=== PATIENT | female | born 1990 | race Caucasian/White ===

== ENCOUNTER 2016-12-09 20:16 | Emergency (ER) | payer OTHER ==
[2016-12-09] MEDS ORDERED: DUONEB 0.5-3 MG/3 ml Neb IH ONE ×2 (20:25→20:26)
[2016-12-09] MEDS ORDERED: Sodium Chloride 0.9% 1000 ML 1,000 ML IV STA (20:27)
[2016-12-09] MEDS ORDERED: Sodium Chloride 0.9% 1000 ML 1,000 ML ONE (20:32)
[2016-12-09] MEDS ORDERED: solu-MEDROL 125 MG IV ONE (20:39)
[2016-12-09] MEDS ORDERED: solu-MEDROL 125 MG ONE (20:42)
--- NOTE | 2016-12-09 20:44 | ERPHSYRPT ---
- History of Present Illness Time Seen by Provider: 12/09/16 20:40 Source: patient Exam Limitations: no limitations Patient Subjective Stated Complaint: states she has very bad asthma and it has been acting up for 1 week Triage Nursing Assessment: bilateral wheezes and pt coughing frequently non productive cough. pt sob at rest Physician History: This is a 26-year-old white female with history of asthma she arrives with complaint of shortness of breath wheezing symptoms for a week she states for the past couple days that she has been waking up and using an inhaler every hour. She has no fevers no vomiting. Past medical history includes migraines, asthma, bronchitis, pneumonia, multiple fractures, anxiety, depression, paranoia. 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 Social history positive for tobacco use. Past surgical history includes left elbow surgery right knee surgery, appendectomy, Timing/Duration: today Activities at Onset: none Severity of Dyspnea-Max: moderate Severity of Dyspnea-Current: moderate Possible Cause: occasional episodes Modifying Factors: Improves With: nothing, albuterol inhaler (atient using albuterol inhaler). Worsens With: albuterol nebulizer, coughing, deep breath, exertion, lying down, oxygen, rest Associated Symptoms: cough, wheezing, No anxiety, No chest pain/discomfort, No edema, No fever, No insomnia, No loss of appetite, No lightheadedness, No weakness, No ankle swelling, No chills, No hemoptysis, No calf pain, No dizziness, No heaviness, No heart racing, No lightheadedness, No leg swelling, No muscle spasms feet, No muscle spasms hands, No painful breathing, No productive cough, No sweating, No tightness, No tingling face, No tingling hands International travel in last 2 weeks: No Allergies/Adverse Reactions: povidone-iodine [From Betadine] Allergy (Mild, Verified 11/03/16 16:27) Blisters soap [From Betadine] Allergy (Mild, Verified 11/03/16 16:27) Blisters sulfamethoxazole [From Bactrim] Allergy (Mild, Verified 11/03/16 16:27) "weird hives" trimethoprim [From Bactrim] Allergy (Mild, Verified 11/03/16 16:27) "weird hives" Home Medications: Albuterol Sulfate [Proair Hfa] 8.5 gm IH QID PRN 03/30/16 [History] Albuterol/Ipratropium 3ml Neb* [DUONEB 0.5-3 MG/3 ml Neb] 3 ml NEB QID [History] Hx Tetanus, Diphtheria Vaccination/Date Given: Yes Hx Influenza Vaccination/Date Given: No Hx Pneumococcal Vaccination/Date Given: No Immunizations Up to Date: Yes - Review of Systems Constitutional: No Fever, No Chills Eyes: No Symptoms Ears, Nose, & Throat: No Symptoms Respiratory: Cough, Dyspnea, Wheezing, No Cyanosis, No Dyspnea on Exertion (DUBON) , No Stridor Cardiac: No Chest Pain, No Edema, No Syncope Abdominal/Gastrointestinal: No Abdominal Pain, No Nausea, No Vomiting, No Diarrhea Genitourinary Symptoms: No Dysuria Musculoskeletal: No Back Pain, No Neck Pain Skin: No Rash Neurological: No Dizziness, No Focal Weakness, No Sensory Changes Psychological: No Symptoms Endocrine: No Symptoms All Other Systems: Reviewed and Negative - Past Medical History Pertinent Past Medical History: Yes Neurological History: Migraines ENT History: No Pertinent History Cardiac History: Other Respiratory History: Asthma, Bronchitis, Pneumonia Endocrine Medical History: No Pertinent History Musculoskeletal History: Fractures, Other GI Medical History: No Pertinent History History: No Pertinent History Psycho-Social History: Anxiety, Depression Female Reproductive Disorders: No Pertinent History Other Medical History: PARANOIA, 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 Unable to name the condition. - Past Surgical History Past Surgical History: Yes Neuro Surgical History: No Pertinent History Cardiac: No Pertinent History Respiratory: No Pertinent History Gastrointestinal: Appendectomy Genitourinary: No Pertinent History Musculoskeletal: Other Female Surgical History: Section Other Surgical History: Left elbow repair, right knee repair - Social History Smoking Status: Former smoker How long have you smoked: 15 Exposure to second hand smoke: Yes Drug Use: none Patient Lives Alone: No Significant Family History: no pertinent family hx - Female History Hx Last Menstrual Period: now Hx Now: No - Nursing Vital Signs Nursing Vital Signs: Initial Vital Signs Temperature 96.7 F Temperature Source Oral Pulse Rate 89 Respiratory Rate 18 Blood Pressure 116/71 Pain Intensity 0 - Physical Exam General Appearance: mild distress Eye Exam: PERRL/EOMI Neck Exam: normal inspection, supple Respiratory Exam: respiratory distress (mild respiratory distress), airway intact, diminished breath sounds, wheezing, No chest tenderness, No lungs clear , No accessory muscle use, No prolonged expirations, No crackles/rales, No rhonchi, No stridor, No pleural rub Cardiovascular/Chest Exam: normal heart sounds, regular rate/rhythm Abdominal/Gastrointestinal Exam: soft, No tenderness, No distention, No mass Extremity Exam: non-tender, normal range of motion, normal inspection, no calf tenderness, no pedal edema Peripheral Pulses Exam: dorsalis-pedis (R): 2+, dorsalis-pedis (L): 2+ (I don't think she broke her nose nothis) Neurologic Exam: alert, oriented x 3, cooperative, clinical care leader II-XII nml as tested, sensation nml, No motor deficits Skin Exam: normal color, warm, No dry SpO2 Interpretation: normal SpO2: 96 Oxygen Delivery: Room Air - Radiology Exams Chest X-ray Interpretation: Interpreted by me, Negative, No Pneumonia, No Pneumothorax Ordered Tests: Active Orders 24 hr Category Date Time Status CHEST 1 VIEW (PORTABLE) Stat Exams 12/09/16 20:39 Taken HCG QUALITATIVE,SERUM Stat Lab 12/09/16 20:40 Completed Respiratory Nebulizer STAT RT 12/09/16 20:26 Completed Medication Summary Generic Name Dose Route Start Last Admin Trade Name Freq PRN Reason Stop Dose Admin Sodium Chloride 1,000 mls @ 100 mls/hr 12/09/16 20:27 12/09/16 20:38 Sodium Chloride 0.9% 1000 Ml IV 12/10/16 06:26 100 mls/hr .Q10H STA Administration Discontinued Medications Generic Name Dose Route Start Last Admin Trade Name Freq PRN Reason Stop Dose Admin Albuterol/Ipratropium 3 ml 12/09/16 20:26 12/09/16 20:29 Duoneb 0.5-3 Mg/3 Ml Neb IH 12/09/16 20:27 3 ml STAT ONE Administration Albuterol/Ipratropium Confirm 12/09/16 20:25 Duoneb 0.5-3 Mg/3 Ml Neb Administered 12/09/16 20:26 Dose 3 ml IH .STK-MED ONE Sodium Chloride Confirm 12/09/16 20:32 Sodium Chloride 0.9% 1000 Ml Administered 12/09/16 20:33 Dose 1,000 mls @ ud .ROUTE .STK-MED ONE Methylprednisolone Sodium Succinate 125 mg 12/09/16 20:39 12/09/16 20:42 Solu-Medrol 125 Mg IV 12/09/16 20:40 125 mg STAT ONE Administration Methylprednisolone Sodium Succinate Confirm 12/09/16 20:42 Solu-Medrol 125 Mg Administered 12/09/16 20:43 Dose 125 mg .ROUTE .STK-MED ONE Lab/Rad Data: Laboratory Results 12/09/16 Range/Units 20:40 Serum , Qual NEGATIVE (Negative) - Progress Progress: improved Air Movement: fair Progress Note: 12/09/16 22:08 Patient markedly improved after IV Solu-Medrol and DuoNeb treatment. Will plan to send patient home with Zithromax, tapering dose of prednisone. Patient has albuterol at home. Patient advised to continue to not to smoke. - Departure Time of Disposition: 22:08 Departure Disposition: Home Clinical Impression: Asthma with acute exacerbation in adult Condition: Fair Critical Care Time: No Additional Instructions: Return home. Plenty of fluids. Zithromax Z-MIRIAM as directed. Tapering dose of prednisone as directed. Continue your albuterol inhaler 2 puffs every 4 hours as needed. Continue not to smoke. Follow-up with your family doctor if symptoms worse no better in 48 hours or persist longer than one week. Return for acute distress or for severe symptoms. Prescriptions: Azithromycin 250 mg [Zithromax 250 MG TABLET] 0 mg PO ZPACK #6 tablet
[2016-12-09] MEDS ORDERED: Zithromax 250 MG TABLET PO ONE (22:10)
[2016-12-09] MEDS ORDERED: Zithromax 250 MG TABLET ONE (22:13)
[2016-12-09 22:28] VITALS: BP 106/67; PULSE 100; O2SAT 97
--- NOTE | 2016-12-10 08:47 | XRAY ---
Indication: Cough and short of breath. Comparison: November 03, 2016 Portable chest again demonstrates normal heart, lungs, and bony thorax.
== END 2016-12-09 22:28 | disposition home or self-care (01) ==
LOC: ED 20:16
DX: J45.901 Unspecified asthma with (acute) exacerbation (principal); Z79.899 Other long term (current) drug therapy; R06.02 Shortness of breath; R06.2 Wheezing; Z87.01 Personal history of pneumonia (recurrent)
CPT/HCPCS: 36000; 36415; 71010; 84703; 94640; 96360; 96374; 99283; J2930

== ENCOUNTER 2016-12-24 18:12 | Emergency (ER) | payer OTHER ==
[2016-12-24] MEDS ORDERED: PROVENTIL 2.5 MG/3 ML NEB IH ONE ×2 (18:15→18:16)
--- NOTE | 2016-12-24 18:26 | ERPHSYRPT ---
- History of Present Illness Time Seen by Provider: 12/24/16 18:19 Source: patient Exam Limitations: no limitations Physician History: This is a 26-year-old white female with history of migraines, asthma, bronchitis , pneumonia, anxiety, depression, paranoia who apparently has some type of heart valve problem. She is brought by medics intubated. Patient apparently was noted to have severe respiratory distress followed by respiratory arrest and cardiac arrest. Patient was given a proximally 5-10 minutes of CPR with return to the respirations and pulse. Patient was noted however to have agonal respirations therefore she was intubated by the medics she was given succinylcholine 50 mg Versed 5 mg and vecuronium 10 mg. She arrives intubated she has bilateral breath sounds with bag ventilation heart is tachycardic. She is unresponsive secondary to pharmacy however medics reported that she other than biting at the tube did not exhibit purposeful movements. Past medical history includes migraines, asthma, bronchitis, pneumonia, fractures, anxiety, depression, paranoia, heart valve problems Past surgical history includes appendectomy, , left elbow surgery right injury. Timing/Duration: today Severity: severe Modifying Factors: Improves With: other (patient in severe respiratory distress prior to cardiac and respiratory arrest) Allergies/Adverse Reactions: povidone-iodine [From Betadine] Allergy (Mild, Verified 12/24/16 18:23) Blisters soap [From Betadine] Allergy (Mild, Verified 12/24/16 18:23) Blisters sulfamethoxazole [From Bactrim] Allergy (Mild, Verified 12/24/16 18:23) "weird hives" trimethoprim [From Bactrim] Allergy (Mild, Verified 12/24/16 18:23) "weird hives" divalproex sodium [From Depakote] Allergy (Verified 12/24/16 18:23) according to family Home Medications: Albuterol Sulfate [Proair Hfa] 8.5 gm IH QID PRN 03/30/16 [History] Albuterol/Ipratropium 3ml Neb* [DUONEB 0.5-3 MG/3 ml Neb] 3 ml NEB QID [History] Azithromycin 250 mg [Zithromax 250 MG TABLET] 1 mg PO ZPACK 12/12/16 [ History] Hx Tetanus, Diphtheria Vaccination/Date Given: Yes Hx Influenza Vaccination/Date Given: No Hx Pneumococcal Vaccination/Date Given: No - Review of Systems Constitutional: No Fever, No Chills Respiratory: Other (Severe respiratory distress progressing to respiratory and cardiac arrest) All Other Systems: Unable due to condition (Patient unresponsive and intubated) - Past Medical History Pertinent Past Medical History: Yes Neurological History: Migraines ENT History: No Pertinent History Cardiac History: Other Respiratory History: Asthma, Bronchitis, Pneumonia Endocrine Medical History: No Pertinent History Musculoskeletal History: Fractures, Other GI Medical History: No Pertinent History History: No Pertinent History Psycho-Social History: Anxiety, Depression Female Reproductive Disorders: No Pertinent History Other Medical History: PARANOIA, 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 Unable to name the condition. - Past Surgical History Past Surgical History: Yes Neuro Surgical History: No Pertinent History Cardiac: No Pertinent History Respiratory: No Pertinent History Gastrointestinal: Appendectomy Genitourinary: No Pertinent History Musculoskeletal: Other Female Surgical History: Section Other Surgical History: Left elbow repair, right knee repair - Social History Smoking Status: Current some day smoker How long have you smoked: 15 years Exposure to second hand smoke: Yes Drug Use: none Patient Lives Alone: No Significant Family History: no pertinent family hx - Female History Hx Now: No - Nursing Vital Signs Nursing Vital Signs: Initial Vital Signs Temperature 95.4 F Temperature Source Core Pulse Rate 110 Respiratory Rate 14 Blood Pressure [Left Arm] 139/89 Pain Intensity 0 - Physical Exam General Appearance: other (well-developed well-nourished white female, intubated good breath sounds with bag ventillation) Eye Exam: other (pupils nonreactive) Ears, Nose, Throat Exam: other (endotracheal tube in place) Neck Exam: normal inspection, non-tender, supple, full range of motion Respiratory Exam: other (bilateral rhonchi and wheezes with bag ventilation) Cardiovascular Exam: tachycardia, other (Tachycardic without murmur) Gastrointestinal/Abdomen Exam: soft, normal bowel sounds, No tenderness, No mass Back Exam: normal inspection, normal range of motion, No CVA tenderness, No vertebral tenderness Extremity Exam: normal inspection, normal range of motion, pelvis stable Neurologic Exam: alert, oriented x 3, cooperative, normal mood/affect, nml cerebellar function, nml station & gait, sensation nml, No motor deficits Skin Exam: normal color, warm, dry, No rash Lymphatic Exam: No adenopathy SpO2 Interpretation: borderline oxygenation (96% on 100% o2) Ordered Tests: Active Orders 24 hr Category Date Time Status Accucheck STAT Care 12/24/16 18:18 Active Cath [Catheter-[place] [facility]] STAT Care 12/24/16 18:43 Active EKG-ER Only STAT Care 12/24/16 18:15 Active CHEST 1 VIEW (PORTABLE) Stat Exams 12/24/16 18:15 Taken ARTERIAL BLOOD GASES Urgent Lab 12/24/16 18:15 Completed CBC W DIFF Stat Lab 12/24/16 18:28 Completed CMP Stat Lab 12/24/16 18:28 Completed D-DIMER QUANTITATION Stat Lab 12/24/16 18:28 Completed HCG QUALITATIVE,SERUM Stat Lab 12/24/16 18:28 Completed Lactic Acid Urgent Lab 12/24/16 18:15 Completed TROPONIN Stat Lab 12/24/16 18:28 Completed Respiratory Nebulizer STAT RT 12/24/16 18:17 Completed Medication Summary Discontinued Medications Generic Name Dose Route Start Last Admin Trade Name Freq PRN Reason Stop Dose Admin Albuterol Sulfate 2.5 mg 12/24/16 18:15 12/24/16 18:21 Proventil 2.5 Mg/3 Ml Neb IH 12/24/16 18:16 2.5 mg STAT ONE Administration Albuterol Sulfate Confirm 12/24/16 18:16 Proventil 2.5 Mg/3 Ml Neb Administered 12/24/16 18:17 Dose 2.5 mg IH .STK-MED ONE Fentanyl Citrate Confirm 12/24/16 19:39 Sublimaze 100 Mcg/2 Ml Administered 12/24/16 19:40 Dose 100 mcg .ROUTE .STK-MED ONE Sodium Chloride Confirm 12/24/16 19:43 Sodium Chloride 0.9% 1000 Ml Administered 12/24/16 19:44 Dose 1,000 mls @ ud .ROUTE .STK-MED ONE Methylprednisolone Sodium Succinate 125 mg 12/24/16 18:32 12/24/16 18:35 Solu-Medrol 125 Mg IV 12/24/16 18:33 125 mg STAT ONE Administration Methylprednisolone Sodium Succinate Confirm 12/24/16 18:32 Solu-Medrol 125 Mg Administered 12/24/16 18:33 Dose 125 mg .ROUTE .STK-MED ONE Lab/Rad Data: Laboratory Result Diagrams 12/24/16 18:28 12/24/16 18:28 Laboratory Results 12/24/16 12/24/16 12/24/16 Range/Units 18:28 18:28 18:28 WBC (4.0-10.5) K/mm3 RBC (4.1-5.4) M/mm3 Hgb (12.0-16.0) gm/dl Hct (35-47) % MCV (78-100) fl MCH (26-32) pg MCHC (32-36) g/dl RDW (11.5-14.0) % Plt Count (150-450) K/mm3 MPV (6-9.5) fl Gran % (36.0-66.0) % Lymphocytes % (24.0-44.0) % Monocytes % (0.0-12.0) % Eosinophils % (0.00-5.0) % Basophils % (0.0-0.4) % Basophils # (0-0.4) D-Dimer 0.665 H* (0.00-0.49) mg/L Puncture Site pCO2 (35-45) mmHg pO2 (75-100) mmHg Base Excess (-2.0-2.0) O2 Saturation (94-100) g/dF ABG pH (7.35-7.45) ABG HCO3 (22-28) ABG O2 Sat (Measured) (95-100) % Seb Test A-a Gradient a/A Ratio Hemoglobin Carboxyhemoglobin (0.0-6.9) % THgb Methemoglobin (1.4-1.5) % Potassium 4.1 (3.5-5.1) Temperature C POC O2 Flow Rate % Vent Mode Vent Rate /MIN Tidal Volume cc PEEP cmH2O Sodium 140 (136-145) mEq/L Chloride 106 (98-107) mEq/L Carbon Dioxide 19.7 L (21-32) mEq/L Anion Gap 18.8 H (5-15) MEQ/L BUN 15 (9-20) mg/dL Creatinine 0.87 (0.55-1.30) mg/dl Estimated GFR > 60 ML/MIN Glucose 202 H (70-110) MG/DL Lactic Acid (0.4-2.0) Calcium 8.4 L (8.5-10.1) mg/dL Total Bilirubin 0.3 (0.2-1.0) mg/dL AST 47 H (15-37) U/L ALT 55 (12-78) U/L Alkaline Phosphatase 81 (46-116) U/L Troponin I < 0.017 (0.000-0.056) ng/ml Serum Total Protein 7.5 (6.4-8.2) gm/dL Albumin 4.0 (3.4-5.0) g/dL Serum , Qual NEGATIVE (Negative) 12/24/16 12/24/16 Range/Units 18:28 18:15 WBC 12.5 H (4.0-10.5) K/mm3 RBC 4.79 (4.1-5.4) M/mm3 Hgb 14.7 (12.0-16.0) gm/dl Hct 43.7 (35-47) % MCV 91.2 (78-100) fl MCH 30.7 (26-32) pg MCHC 33.6 (32-36) g/dl RDW 13.8 (11.5-14.0) % Plt Count 359 (150-450) K/mm3 MPV 9.9 H (6-9.5) fl Gran % 58.8 (36.0-66.0) % Lymphocytes % 30.6 (24.0-44.0) % Monocytes % 6.1 (0.0-12.0) % Eosinophils % 4.2 (0.00-5.0) % Basophils % 0.3 (0.0-0.4) % Basophils # 0.04 (0-0.4) D-Dimer (0.00-0.49) mg/L Puncture Site RIGHT BRACHIAL pCO2 53 H (35-45) mmHg pO2 77 (75-100) mmHg Base Excess -8.4 L (-2.0-2.0) O2 Saturation 91.4 L (94-100) g/dF ABG pH 7.19 L* (7.35-7.45) ABG HCO3 20.2 L (22-28) ABG O2 Sat (Measured) 95.0 (95-100) % Seb Test NOT APPLICABLE A-a Gradient 570 a/A Ratio 0.12 Hemoglobin 14.7 Carboxyhemoglobin 2.8 (0.0-6.9) % THgb Methemoglobin 1.0 L (1.4-1.5) % Potassium 3.8 (3.5-5.1) Temperature 37.0 C POC O2 Flow Rate 100 % Vent Mode A/C Vent Rate 14 /MIN Tidal Volume 550 cc PEEP 5 cmH2O Sodium (136-145) mEq/L Chloride (98-107) mEq/L Carbon Dioxide (21-32) mEq/L Anion Gap (5-15) MEQ/L BUN (9-20) mg/dL Creatinine (0.55-1.30) mg/dl Estimated GFR ML/MIN Glucose (70-110) MG/DL Lactic Acid 1.8 (0.4-2.0) Calcium (8.5-10.1) mg/dL Total Bilirubin (0.2-1.0) mg/dL AST (15-37) U/L ALT (12-78) U/L Alkaline Phosphatase (46-116) U/L Troponin I (0.000-0.056) ng/ml Serum Total Protein (6.4-8.2) gm/dL Albumin (3.4-5.0) g/dL Serum , Qual (Negative) - Progress Progress: improved Progress Note: 12/0312/24/16 20:08 patient was given 2 L normal saline, Solu-Medrol 125 IV she was given fentanyl 50 g IV 2. Patient's labs were stable. Case was discussed with Dr. Quinones. . Patient was given albuterol treatment and continued on ventilatorpatient had a decreased temperature of 93 on arrival because of patient's decreased level of consciousness after cardiac arrest, her temperature was not aggressivelly restored to normal level, Dr. Quinones accepted the patient for transfer to [facility] - Departure Time of Disposition: 20:10 Departure Disposition: Transfer ([facility] Dr Quinones) Clinical Impression: Cardiac arrest, Respiratory arrest, Asthma exacerbation Condition: Fair Critical Care Time: Yes Critical Care Time(excluding separately billable procedures): 75-104 minutes
[2016-12-24 18:28] LABS: A-aADO2 570; ARTERIAL BLD GAS TIDAL VOLUME 550 cc; ARTERIAL BLOOD GAS BASE EXCESS -8.4 (-2.0-2.0); ARTERIAL BLOOD GAS FIO2 100 %; ARTERIAL BLOOD GAS PO2 77 mmHg (75-100); Lactic Acid 1.8 (0.4-2.0)
[2016-12-24 18:29] LABS: ARTERIAL BLOOD GAS pH 7.19 (7.35-7.45)
[2016-12-24] MEDS ORDERED: solu-MEDROL 125 MG ONE (18:32)
[2016-12-24] MEDS ORDERED: solu-MEDROL 125 MG IV ONE (18:32)
[2016-12-24 18:35] LABS: BASOPHIL % 0.3 % (0.0-0.4); Eosinophil % 4.2 % (0.00-5.0); Granulocytes % 58.8 % (36.0-66.0); Lymphocytes % 30.6 % (24.0-44.0); Mean Cell Volume 91.2 fl (78-100); Mean Corpuscular Hemoglobin 30.7 pg (26-32); Mean Platelet Volume 9.9 fl (6-9.5); Monocytes % 6.1 % (0.0-12.0); Platelet Count 359 K/mm3 (150-450); Red Blood Count 4.79 M/mm3 (4.1-5.4); Red Cell Distribution Width 13.8 % (11.5-14.0); White Blood Count 12.5 K/mm3 (4.0-10.5)
[2016-12-24 18:58] LABS: ALKALINE PHOSPHATASE 81 U/L (46-116); ANION GAP 18.8 MEQ/L (5-15); BILIRUBIN,TOTAL 0.3 mg/dL (0.2-1.0); BLOOD UREA NITROGEN 15 mg/dL (9-20); CHLORIDE 106 mEq/L (98-107); Carbon Dioxide 19.7 mEq/L (21-32); Glucose 202 MG/DL (70-110); Potassium 4.1 mEq/L (3.5-5.1); SGOT/AST 47 U/L (15-37); SGPT/ALT 55 U/L (12-78); SODIUM 140 mEq/L (136-145); Total Protein 7.5 gm/dL (6.4-8.2)
[2016-12-24 19:00] LABS: TROPONIN < 0.017 ng/ml (0.000-0.056)
[2016-12-24] MEDS ORDERED: SUBLIMAZE 100 MCG/2 ML ONE ×2 (19:39→20:27)
[2016-12-24] MEDS ORDERED: Sodium Chloride 0.9% 1000 ML 1,000 ML ONE (19:43)
[2016-12-24 20:03] VITALS: BP 139/89; PULSE 110; O2SAT 100
[2016-12-24] MEDS ORDERED: VERSED 5 MG/5 ML ONE (20:12)
[2016-12-24] MEDS ORDERED: Versed 50 MG/ 10 Ml MDV ONE (20:15)
[2016-12-24] MEDS ORDERED: Sodium Chloride 0.9% 250 ML 250 ML IV ONE (20:15)
--- NOTE | 2016-12-25 08:41 | XRAY ---
Indication: Asthma and cardiac arrest. Comparison: December 09, 2016 Portable chest demonstrates intubation with endotracheal tube tip 4 cm above the rm. Remaining heart, lungs, and bony thorax normal.
== END 2016-12-24 21:01 | disposition short-term general hospital (02) ==
LOC: ED 18:12
DX: I46.9 Cardiac arrest, cause unspecified (principal); R09.2 Respiratory arrest; J45.901 Unspecified asthma with (acute) exacerbation
CPT/HCPCS: 36000; 36415; 36600; 51702; 71010; 80053; 82375; 82803; 82962; 83605; 84484; 84703; 85025; 85379; 93005; 93041; 94002; 94640; 94770; 94799; 96360; 96361; 96365; 96374; 99285; 99291; 99292; J2250; J2930; J3010

== ENCOUNTER 2017-02-13 18:01 | Emergency (ER) | payer OTHER ==
[2017-02-13] MEDS ORDERED: Eye-Stream Solution OP ONE (19:54)
[2017-02-13] MEDS ORDERED: Erythromycin 3.5 GM OPHTH. OP ONE (19:54)
[2017-02-13] MEDS ORDERED: TETRACAINE 0.5% STERI-UNIT SOL OP STA (19:54)
[2017-02-13] MEDS ORDERED: Fluor-I-Strip/Ful-Flo OP ONE ×2 (19:54→20:01)
[2017-02-13] MEDS ORDERED: Rocephin 1000 MG INJ IM ONE (19:55)
[2017-02-13] MEDS ORDERED: XYLOCAINE 1% HCL 20 ML MDV ONE (20:01)
[2017-02-13] MEDS ORDERED: Rocephin 1000 MG INJ ONE (20:01)
[2017-02-13] MEDS ORDERED: Erythromycin 1 GM ONE (20:01)
[2017-02-13] MEDS ORDERED: TETRACAINE 0.5% STERI-UNIT SOL OP ONE (20:01)
[2017-02-13] MEDS ORDERED: Eye-Stream Solution ONE (20:01)
--- NOTE | 2017-02-13 20:03 | ERPHSYRPT ---
- History of Present Illness Time Seen by Provider: 02/13/17 19:40 Source: patient Exam Limitations: no limitations Patient Subjective Stated Complaint: rt eye pain Triage Nursing Assessment: rt eye questionable foreign body. states swelling and redness is worse. rt eye noted swelling. yellow drainage noted. no other injuries. draiange noted at present Physician History: THREE DAYS AGO PT HAD A FOREIGN BODY SENSATION IN THE RIGHT EYE POSSIBLY FROM SAWDUST. THE FOLLOWING DAY THE RIGHT EYELIDS BECAME RED AND SWOLLEN. PT ALSO HAS YELLOW DISCHARGE FROM THE RIGHT EYE. PT DENIES FEVER, COUGH, VOMITING; ADMITS TO SLIGHT BLURRY VISION IN THE RIGHT EYE. Allergies/Adverse Reactions: povidone-iodine [From Betadine] Allergy (Mild, Verified 02/13/17 18:29) Blisters soap [From Betadine] Allergy (Mild, Verified 02/13/17 18:29) Blisters sulfamethoxazole [From Bactrim] Allergy (Mild, Verified 02/13/17 18:29) "weird hives" trimethoprim [From Bactrim] Allergy (Mild, Verified 02/13/17 18:29) "weird hives" divalproex sodium [From Depakote] Allergy (Verified 02/13/17 18:29) according to family Home Medications: Albuterol Sulfate [Proair Hfa] 8.5 gm IH QID PRN 03/30/16 [History] Albuterol/Ipratropium 3ml Neb* [DUONEB 0.5-3 MG/3 ml Neb] 3 ml NEB QID [History] Hx Tetanus, Diphtheria Vaccination/Date Given: Yes Hx Influenza Vaccination/Date Given: No Hx Pneumococcal Vaccination/Date Given: No Immunizations Up to Date: Yes - Review of Systems Constitutional: No Fever Eyes: Discharge, Eye Redness, Vision Changes (SLIGHT BLURRY VISION IN THE RIGHT EYE), Foreign Body Sensation Respiratory: No Cough Abdominal/Gastrointestinal: No Vomiting All Other Systems: Reviewed and Negative - Past Medical History Pertinent Past Medical History: Yes Neurological History: Migraines ENT History: No Pertinent History Cardiac History: Other Respiratory History: Asthma, Bronchitis, Pneumonia Endocrine Medical History: No Pertinent History Musculoskeletal History: Fractures, Other GI Medical History: No Pertinent History History: No Pertinent History Psycho-Social History: Anxiety, Depression Female Reproductive Disorders: No Pertinent History Other Medical History: PARANOIA, undiagnosed heart valve issue. using wheelchair due to unable to use legs - Past Surgical History Past Surgical History: Yes Neuro Surgical History: No Pertinent History Cardiac: No Pertinent History Respiratory: No Pertinent History Gastrointestinal: Appendectomy Genitourinary: No Pertinent History Musculoskeletal: Other Female Surgical History: Section Other Surgical History: Left elbow repair, right knee repair - Social History Smoking Status: Current every day smoker How long have you smoked: 15 years Exposure to second hand smoke: Yes Drug Use: none Patient Lives Alone: No Significant Family History: no pertinent family hx - Female History Hx Last Menstrual Period: 3 weeks Hx Now: No - Nursing Vital Signs Nursing Vital Signs: Initial Vital Signs Temperature 98.1 F Temperature Source Oral Pulse Rate 107 Respiratory Rate 18 Blood Pressure [Right Arm] 108/62 Pain Intensity 6 - Physical Exam General Appearance: alert Eye Exam: right eye: conjunctival inflammation, corneal abrasion (NO CORNEAL ABRASION SEEN IN RIGHT EYE UPON FLUORESCEIN STAINING; NO F.B. SEEN IN RIGHT EYE. ), other (RIGHT EYELIDS MILDLY ERYTHEMATOUS AND EDEMATOUS.), bilateral eye: PERRL, EOMI Ears, Nose, Throat Exam: TMs normal, pharynx normal, moist mucous membranes Neck Exam: normal inspection Respiratory Exam: wheezing (MINIMAL EXPIRATORY WHEEZING OVER THE RIGHT POSTERIOR BASE.) Cardiovascular Exam: normal heart sounds Gastrointestinal Exam: soft, normal bowel sounds Extremity Exam: other (WEAKNESS OF THE LOWER EXTREMITIES(ONGOING FOR TWO MONTHS PER PT).) Neurologic: alert, cooperative - Course Nursing assessment & vital signs reviewed: Yes Ordered Tests: Active Orders 24 hr Category Date Time Status Visual Acuity STAT Care 02/13/17 19:54 Active Medication Summary Discontinued Medications Generic Name Dose Route Start Last Admin Trade Name Baq PRN Reason Stop Dose Admin Ceftriaxone Sodium 1,000 mg 02/13/17 19:55 02/13/17 20:03 Rocephin 1000 Mg Inj IM 02/13/17 19:56 1,000 mg STAT ONE Administration Ceftriaxone Sodium Confirm 02/13/17 20:01 Rocephin 1000 Mg Inj Administered 02/13/17 20:02 Dose 1,000 mg .ROUTE .STK-MED ONE Erythromycin 3.5 gm 02/13/17 19:54 02/13/17 20:03 Erythromycin 3.5 Gm Ophth. OP 02/13/17 19:55 3.5 gm STAT ONE Administration Erythromycin Confirm 02/13/17 20:01 Erythromycin 1 Gm Administered 02/13/17 20:02 Dose 1 gm .ROUTE .STK-MED ONE Eye Irrigation Solution 15 ml 02/13/17 19:54 02/13/17 20:03 Eye-Stream Solution OP 02/13/17 19:55 30 ml STAT ONE Administration Eye Irrigation Solution Confirm 02/13/17 20:01 Eye-Stream Solution Administered 02/13/17 20:02 Dose 30 ml .ROUTE .STK-MED ONE Fluorescein Sodium 1 mg 02/13/17 19:54 02/13/17 20:03 Gjvfb-U-Gxdof/Ful-Rolf OP 02/13/17 19:55 1 mg STAT ONE Administration Fluorescein Sodium Confirm 02/13/17 20:01 Dewzs-H-Qxuwd/Ful-Rolf Administered 02/13/17 20:02 Dose 1 mg OP .STK-MED ONE Lidocaine HCl Confirm 02/13/17 20:01 Xylocaine 1% Hcl 20 Ml Mdv Administered 02/13/17 20:02 Dose 1 ml .ROUTE .STK-MED ONE Tetracaine HCl 4 ml 02/13/17 19:54 02/13/17 20:03 Tetracaine 0.5% Steri-Unit Letty OP 02/13/17 19:55 4 ml STAT STA Administration Tetracaine HCl Confirm 02/13/17 20:01 Tetracaine 0.5% Steri-Unit Letty Administered 02/13/17 20:02 Dose 4 ml OP .STK-MED ONE - Departure Time of Disposition: 20:58 Departure Disposition: Home Clinical Impression: PERIORBITAL CELLULITIS OF THE RIGHT EYE, CONJUNCTIVITIS OF THE RIGHT EYE Condition: Fair Critical Care Time: No Referrals: CARLENE MENA MD [Primary Care Provider] - Prescriptions: Cefdinir [Omnicef 300 mg] 300 mg PO BID #20 capsule Neomy Sulf/Bacitra/Polymyxin * [Neosporin Opth Oint 3.5 GM] 1 cm OP BID #1 tube
[2017-02-13 21:05] VITALS: BP 124/70; PULSE 76; O2SAT 100
== END 2017-02-13 21:13 | disposition home or self-care (01) ==
LOC: ED 18:01
DX: L03.213 Periorbital cellulitis (principal); H53.8 Other visual disturbances; H57.8 Other specified disorders of eye and adnexa
CPT/HCPCS: 96372; 99284; J0696

== ENCOUNTER 2017-02-17 05:33 | Observation (INO) | payer OTHER ==
[2017-02-17] MEDS ORDERED: DUONEB 0.5-3 MG/3 ml Neb IH ONE ×2 (05:40→05:42)
[2017-02-17] MEDS ORDERED: solu-MEDROL 125 MG IV ONE (05:42)
--- NOTE | 2017-02-17 05:50 | ERPHSYRPT ---
- History of Present Illness Time Seen by Provider: 02/17/17 05:40 Source: patient, EMS Exam Limitations: no limitations Physician History: 26 year old female with asthma who required intubation for same just a few months ago; pt developed shortness of breath this am and called EMS when three breathing treatmetns did not resolve her symptoms;pt also has cellulitis right eye being treated with ab , but has not been taking so will give AB in ER Timing/Duration: today Activities at Onset: none Severity of Dyspnea-Max: severe Severity of Dyspnea-Current: moderate Possible Cause: frequent episodes Modifying Factors: Improves With: albuterol nebulizer, oxygen Associated Symptoms: cough, wheezing Allergies/Adverse Reactions: povidone-iodine [From Betadine] Allergy (Mild, Verified 02/17/17 05:40) Blisters soap [From Betadine] Allergy (Mild, Verified 02/17/17 05:40) Blisters sulfamethoxazole [From Bactrim] Allergy (Mild, Verified 02/17/17 05:40) "weird hives" trimethoprim [From Bactrim] Allergy (Mild, Verified 02/17/17 05:40) "weird hives" divalproex sodium [From Depakote] Allergy (Verified 02/17/17 05:40) according to family Home Medications: Albuterol Sulfate [Proair Hfa] 8.5 gm IH QID PRN 03/30/16 [History] Albuterol/Ipratropium 3ml Neb* [DUONEB 0.5-3 MG/3 ml Neb] 3 ml NEB QID [History] Hx Tetanus, Diphtheria Vaccination/Date Given: Yes Hx Influenza Vaccination/Date Given: No Hx Pneumococcal Vaccination/Date Given: No - Review of Systems Constitutional: No Fever, No Chills Eyes: No Symptoms Ears, Nose, & Throat: No Symptoms Respiratory: Cough, Dyspnea, Wheezing Cardiac: No Chest Pain, No Edema, No Syncope Abdominal/Gastrointestinal: No Abdominal Pain, No Nausea, No Vomiting, No Diarrhea Genitourinary Symptoms: No Dysuria Musculoskeletal: No Back Pain, No Neck Pain Skin: No Rash Neurological: No Dizziness, No Focal Weakness, No Sensory Changes Psychological: No Symptoms Endocrine: No Symptoms All Other Systems: Reviewed and Negative - Past Medical History Pertinent Past Medical History: Yes Neurological History: Migraines ENT History: No Pertinent History Cardiac History: Other Respiratory History: Asthma, Bronchitis, Pneumonia Endocrine Medical History: No Pertinent History Musculoskeletal History: Fractures, Other GI Medical History: No Pertinent History History: No Pertinent History Psycho-Social History: Anxiety, Depression Female Reproductive Disorders: No Pertinent History Other Medical History: PARANOIA, undiagnosed heart valve issue. using wheelchair due to unable to use legs - Past Surgical History Past Surgical History: Yes Neuro Surgical History: No Pertinent History Cardiac: No Pertinent History Respiratory: No Pertinent History Gastrointestinal: Appendectomy Genitourinary: No Pertinent History Musculoskeletal: Other Female Surgical History: Section Other Surgical History: Left elbow repair, right knee repair - Social History Smoking Status: Current every day smoker How long have you smoked: 15 years Exposure to second hand smoke: Yes Drug Use: none Patient Lives Alone: No Significant Family History: no pertinent family hx - Female History Hx Now: No - Nursing Vital Signs Nursing Vital Signs: Initial Vital Signs Temperature 97.8 F Temperature Source Oral Pulse Rate 116 Respiratory Rate 29 Blood Pressure [] 130/75 Pain Intensity 0 - Physical Exam General Appearance: moderate distress, alert Eye Exam: PERRL/EOMI Neck Exam: normal inspection, supple Respiratory Exam: accessory muscle use, wheezing Cardiovascular/Chest Exam: normal heart sounds, regular rate/rhythm Abdominal/Gastrointestinal Exam: soft, No tenderness, No distention, No mass Rectal Exam: deferred Extremity Exam: non-tender, normal range of motion, normal inspection, no calf tenderness, no pedal edema Peripheral Pulses Exam: carotid (R): 2+, carotid (L): 2+, femoral (R): 2+, femoral (L): 2+, dorsalis-pedis (R): 2+, dorsalis-pedis (L): 2+ Neurologic Exam: alert, oriented x 3, cooperative, landscape architect II-XII nml as tested, sensation nml, No motor deficits Skin Exam: normal color, warm, No dry SpO2 Interpretation: borderline oxygenation SpO2: 91 Oxygen Delivery: Room Air - Course Nursing assessment & vital signs reviewed: Yes EKG Interpreted by Me: Sinus Rhythm, NORMAL AXIS, NORMAL INTERVALS, Non- specific ST Changes - Radiology Exams Chest X-ray Interpretation: Reviewed by me, Infiltrates (bilateral small infiltrates) Ordered Tests: Active Orders 24 hr Category Date Time Status Technology And Engineering Teacher STAT Care 02/17/17 05:42 Active EKG-ER Only STAT Care 02/17/17 05:42 Active IV Insertion STAT Care 02/17/17 05:42 Active Oxygen-ED Only NASAL CANNULA 2 lpm Care 02/17/17 05:42 Active CHEST 2 VIEWS (PA AND LAT) Stat Exams 02/17/17 05:43 Ordered CBC W DIFF Stat Lab 02/17/17 05:54 Completed CMP Stat Lab 02/17/17 05:54 Completed CULTURE, THROAT Stat Lab 02/17/17 06:02 Received HCG QUALITATIVE,SERUM Stat Lab 02/17/17 05:54 Completed Lactic Acid Stat Lab 02/17/17 06:04 Completed MAGNESIUM Stat Lab 02/17/17 05:54 Completed STREP SCREEN-BETA A Stat Lab 02/17/17 06:02 Completed Peak Expiratory Flow Rate ONCE RT 02/17/17 05:42 Completed Respiratory Nebulizer STAT RT 02/17/17 05:45 Completed Medication Summary Generic Name Dose Route Start Last Admin Trade Name Freq PRN Reason Stop Dose Admin Magnesium Sulfate/Dextrose 100 mls @ 100 mls/hr 02/17/17 05:45 02/17/17 06:23 Magnesium 1 Gm / 100 Ml D5w IV 02/17/17 07:44 100 mls/hr Q1H HELDER Administration Sodium Chloride 1,000 mls @ 100 mls/hr 02/17/17 05:45 02/17/17 06:02 Sodium Chloride 0.9% 1000 Ml IV 03/19/17 05:44 100 mls/hr .Q10H HELDER Administration Discontinued Medications Generic Name Dose Route Start Last Admin Trade Name Freq PRN Reason Stop Dose Admin Albuterol/Ipratropium Confirm 02/17/17 05:40 Duoneb 0.5-3 Mg/3 Ml Neb Administered 02/17/17 05:41 Dose 3 ml IH .STK-MED ONE Albuterol/Ipratropium 3 ml 02/17/17 05:42 02/17/17 05:49 Duoneb 0.5-3 Mg/3 Ml Neb IH 02/17/17 05:43 3 ml STAT ONE Administration Erythromycin 3.5 gm 02/17/17 06:06 Erythromycin 3.5 Gm Ophth. OP 02/17/17 06:07 STAT ONE Magnesium Sulfate/Dextrose Confirm 02/17/17 05:51 Magnesium 1 Gm / 100 Ml D5w Administered 02/17/17 05:52 Dose 200 mls @ ud IV .STK-MED ONE Sodium Chloride Confirm 02/17/17 05:51 Sodium Chloride 0.9% 1000 Ml Administered 02/17/17 05:52 Dose 1,000 mls @ ud .ROUTE .STK-MED ONE Ceftriaxone Sodium/Dextrose 50 mls @ 100 mls/hr 02/17/17 06:03 Rocephin 1 Gm-D5w 50 Ml Bag IV 02/17/17 06:32 STAT ONE Methylprednisolone Sodium Succinate 125 mg 02/17/17 05:42 02/17/17 06:07 Solu-Medrol 125 Mg IV 02/17/17 05:43 125 mg STAT ONE Administration Methylprednisolone Sodium Succinate Confirm 02/17/17 05:51 Solu-Medrol 125 Mg Administered 02/17/17 05:52 Dose 125 mg .ROUTE .STK-MED ONE Lab/Rad Data: Laboratory Result Diagrams 02/17/17 05:54 02/17/17 05:54 Laboratory Results 02/17/17 02/17/17 02/17/17 Range/Units 06:04 06:02 05:54 WBC (4.0-10.5) K/mm3 RBC (4.1-5.4) M/mm3 Hgb (12.0-16.0) gm/dl Hct (35-47) % MCV (78-100) fl MCH (26-32) pg MCHC (32-36) g/dl RDW (11.5-14.0) % Plt Count (150-450) K/mm3 MPV (6-9.5) fl Gran % (36.0-66.0) % Lymphocytes % (24.0-44.0) % Monocytes % (0.0-12.0) % Eosinophils % (0.00-5.0) % Basophils % (0.0-0.4) % Basophils # (0-0.4) Sodium (136-145) mEq/L Potassium (3.5-5.1) mEq/L Chloride (98-107) mEq/L Carbon Dioxide (21-32) mEq/L Anion Gap (5-15) MEQ/L BUN (9-20) mg/dL Creatinine (0.55-1.30) mg/dl Estimated GFR ML/MIN Glucose (70-110) MG/DL Lactic Acid 1.5 (0.4-2.0) Calcium (8.5-10.1) mg/dL Magnesium (1.8-2.4) mg/dL Total Bilirubin (0.2-1.0) mg/dL AST (15-37) U/L ALT (12-78) U/L Alkaline Phosphatase (46-116) U/L Serum Total Protein (6.4-8.2) gm/dL Albumin (3.4-5.0) g/dL Serum , Qual NEGATIVE (Negative) Streptococcus Screen NEGATIVE (Negative) 02/17/17 02/17/17 Range/Units 05:54 05:54 WBC 7.4 (4.0-10.5) K/mm3 RBC 4.77 (4.1-5.4) M/mm3 Hgb 14.8 (12.0-16.0) gm/dl Hct 42.8 (35-47) % MCV 89.7 (78-100) fl MCH 31.0 (26-32) pg MCHC 34.6 (32-36) g/dl RDW 13.4 (11.5-14.0) % Plt Count 239 (150-450) K/mm3 MPV 10.3 H (6-9.5) fl Gran % 53.5 (36.0-66.0) % Lymphocytes % 31.5 (24.0-44.0) % Monocytes % 5.4 (0.0-12.0) % Eosinophils % 8.9 H (0.00-5.0) % Basophils % 0.7 (0.0-0.4) % Basophils # 0.05 (0-0.4) Sodium 143 (136-145) mEq/L Potassium 4.1 (3.5-5.1) mEq/L Chloride 106 (98-107) mEq/L Carbon Dioxide 25.6 (21-32) mEq/L Anion Gap 15.3 H (5-15) MEQ/L BUN 12 (9-20) mg/dL Creatinine 0.88 (0.55-1.30) mg/dl Estimated GFR > 60 ML/MIN Glucose 96 (70-110) MG/DL Lactic Acid (0.4-2.0) Calcium 8.4 L (8.5-10.1) mg/dL Magnesium 2.0 (1.8-2.4) mg/dL Total Bilirubin 0.2 (0.2-1.0) mg/dL AST 18 (15-37) U/L ALT 19 (12-78) U/L Alkaline Phosphatase 78 (46-116) U/L Serum Total Protein 7.6 (6.4-8.2) gm/dL Albumin 3.9 (3.4-5.0) g/dL Serum , Qual (Negative) Streptococcus Screen (Negative) - Progress Progress: improved, re-examined Air Movement: good Progress Note: 02/17/17 06:49 discussed with pt, and Dr Parish covering for Dr. Elizabeth and all agree best to place the pt in for obs to observe for relapse and begin tx of infiltrates; Blood Culture(s) Obtained: No Antibiotics given: Yes Discussed with DrMishel: Other (Dr. Parish) Counseled pt/family regarding: lab results, diagnosis, need for follow-up, rad results - Departure Time of Disposition: 06:48 Departure Disposition: Observation Clinical Impression: Asthma exacerbation, Pneumonitis Condition: Good Critical Care Time: No
[2017-02-17] MEDS ORDERED: Sodium Chloride 0.9% 1000 ML 1,000 ML ONE (05:51)
[2017-02-17] MEDS ORDERED: Magnesium 1 Gm / 100 Ml D5W*** 200 ML IV ONE (05:51)
[2017-02-17] MEDS ORDERED: solu-MEDROL 125 MG ONE (05:51)
[2017-02-17] MEDS: Magnesium 1 Gm / 100 Ml D5W*** 100 ML IV SCH ×2 (06:02→06:23)
[2017-02-17] MEDS: Sodium Chloride 0.9% 1000 ML 1,000 ML IV SCH ×2 (06:02→15:44)
[2017-02-17] MEDS ORDERED: ROCEPHIN 1 Gm-D5w 50 ml Bag** 50 ML IV ONE ×2 (06:03→06:43)
[2017-02-17 06:06] LABS: BASOPHIL % 0.7 % (0.0-0.4); Eosinophil % 8.9 % (0.00-5.0); Granulocytes % 53.5 % (36.0-66.0); Lymphocytes % 31.5 % (24.0-44.0); Mean Cell Volume 89.7 fl (78-100); Mean Platelet Volume 10.3 fl (6-9.5); Monocytes % 5.4 % (0.0-12.0); Platelet Count 239 K/mm3 (150-450); Red Blood Count 4.77 M/mm3 (4.1-5.4); Red Cell Distribution Width 13.4 % (11.5-14.0); White Blood Count 7.4 K/mm3 (4.0-10.5)
[2017-02-17] MEDS ORDERED: Erythromycin 3.5 GM OPHTH. OP ONE (06:06)
[2017-02-17 06:21] LABS: ALBUMIN 3.9 g/dL (3.4-5.0); ALKALINE PHOSPHATASE 78 U/L (46-116); ANION GAP 15.3 MEQ/L (5-15); BILIRUBIN,TOTAL 0.2 mg/dL (0.2-1.0); BLOOD UREA NITROGEN 12 mg/dL (9-20); CHLORIDE 106 mEq/L (98-107); Carbon Dioxide 25.6 mEq/L (21-32); Glucose 96 MG/DL (70-110); Potassium 4.1 mEq/L (3.5-5.1); SGOT/AST 18 U/L (15-37); SGPT/ALT 19 U/L (12-78); SODIUM 143 mEq/L (136-145); Total Protein 7.6 gm/dL (6.4-8.2)
[2017-02-17] MEDS ORDERED: Erythromycin 1 GM ONE (06:43)
[2017-02-17] MEDS ORDERED: Zofran 4 MG/2 ML VIAL IV PRN (08:33)
[2017-02-17] MEDS ORDERED: TYLENOL 325 MG PO PRN (08:33)
--- NOTE | 2017-02-17 08:59 | XRAY ---
Indication: Respiratory failure. Comparison: December 24, 2016. AP/lateral chest obtained on cart demonstrates patient rotated on both views. Lungs remain clear. Heart is not enlarged. Vascularity normal. Bony thorax intact. Impression: Nonacute chest.
[2017-02-17] MEDS: DUONEB 0.5-3 MG/3 ml Neb IH PRN ×2 (10:36→15:18)
[2017-02-17] MEDS: Erythromycin 1 GM OP SCH ×3 (11:20→23:27)
[2017-02-17] MEDS ORDERED: solu-MEDROL 125 MG IV SCH (12:00)
[2017-02-17] MEDS: solu-MEDROL 40 MG IV SCH ×2 (16:59→23:26)
[2017-02-17] MEDS: Zithromax 250 MG TABLET PO SCH (16:59)
[2017-02-17] MEDS: ENOXAPARIN SODIUM SQ SCH (16:59)
[2017-02-17] MEDS: DUONEB 0.5-3 MG/3 ml Neb IH SCH ×2 (18:47→23:44)
[2017-02-17] MEDS ORDERED: ROCEPHIN 1 Gm-D5w 50 ml Bag** 50 ML IV SCH (22:00)
[2017-02-17] MEDS: Pepcid 20 MG PO SCH (22:56)
[2017-02-18] MEDS: PULMICORT 0.5 MG/2 ML RESPULES IH SCH ×2 (00:33→07:06)
[2017-02-18] MEDS: Sodium Chloride 0.9% 1000 ML 1,000 ML IV SCH (03:10)
[2017-02-18] MEDS: DUONEB 0.5-3 MG/3 ml Neb IH SCH ×4 (04:12→14:25)
[2017-02-18] MEDS: solu-MEDROL 40 MG IV SCH ×2 (05:36→11:34)
[2017-02-18] MEDS: Erythromycin 1 GM OP SCH ×2 (05:36→11:39)
[2017-02-18 06:22] LABS: Mean Cell Volume 91.1 fl (78-100); Mean Platelet Volume 10.5 fl (6-9.5); Platelet Count 231 K/mm3 (150-450); Red Blood Count 3.95 M/mm3 (4.1-5.4); Red Cell Distribution Width 13.3 % (11.5-14.0); White Blood Count 10.6 K/mm3 (4.0-10.5)
[2017-02-18 06:26] LABS: Mean Corpuscular Hemoglobin 31.3 pg (26-32)
[2017-02-18 06:27] LABS: ANION GAP 16.5 MEQ/L (5-15); BLOOD UREA NITROGEN 7 mg/dL (9-20); CHLORIDE 111 mEq/L (98-107); Carbon Dioxide 19.1 mEq/L (21-32); Glucose 184 MG/DL (70-110); Potassium 3.9 mEq/L (3.5-5.1); SODIUM 143 mEq/L (136-145)
--- NOTE | 2017-02-18 08:59 | HP ---
HISTORY OF PRESENT ILLNESS: This is a 26 year-old with history of asthma. She had exacerbation symptoms about two to three days back progressively getting worse, increased cough, shortness of breath and with that she reported to the emergency room. The patient had earlier required intubation because of her asthma exacerbation. The patient at this time with the progressive symptoms was hospitalized. PAST MEDICAL HISTORY: Positive for asthma according to the patient in the past. FAMILY HISTORY: Noncontributory. SOCIAL HISTORY: Every day smoker smoking for 15 years. No alcohol. CURRENT MEDICATIONS: ALLERGIES: POVIDINE, SOAP, SULFAMETHOXAZOLE, TRIMETHOPRIM, DEPAKOTE. ALBUTEROL, PROAIR, TETANUS, DIPHTHERIA, INFLUENZA VACCINE, PNEUMOCOCCAL VACCINATION. REVIEW OF SYSTEMS: No fever. No chills. The patient had one of the eyes injured on one side with pain and erythema because of minor corneal injury. RESPIRATORY: Positive for cough, wheezing, shortness of breath. No chest pain. GI: No heartburn. NEURO: Intact. CVS: No pertinent cardiac history. RESPIRATORY: Again positive for shortness of breath. GI: Heartburn. No reflux. PHYSICAL EXAMINATION: The patient appears mildly in distress. Vital signs 130/75, pulse 110, respiratory rate 20, temperature afebrile 97.8F. HEENT: Pupils reactive. NECK: No JVD. No lymphadenopathy. CHEST: Bilateral rhonchi present. HEART: S1, S2 normal. ABDOMEN: Soft, nontender, bowel sounds present. EXTREMITIES: No edema. NEURO: Alert with no focal deficits. LAB DATA AND TESTS: The patient's labs CBC showed white blood cell count 7.4, hemoglobin 14.8, hematocrit 42.8, MCV 89.7, PLT count was 239,000, granulocytes 53.5, lymphocytes 31.5. Sodium 143, potassium 4.1, chloride 106, BUN 12, creatinine 0.8, glucose 96, calcium 8.4, magnesium 22.0, total bilirubin 0.2, AST 18, ALT 19, alkaline phosphatase 78, total protein 7.6, albumin 3.9. Chest x-ray possibility of early pneumonia. ASSESSMENT: 1) ASTHMA EXACERBATION. 2) PNEUMONITIS. PLAN: The patient is treated with IV Rocephin and Zithromax and also IV Solu-Medrol inhalation, bronchodilator inhalation of steroids, close monitoring of IV fluids for hydration. The patient will be monitored closely while in the hospital assessed regarding the progress. The patient will be put on deep venous thrombosis prophylaxis.
[2017-02-18] MEDS: Pepcid 20 MG PO SCH (09:04)
[2017-02-18] MEDS: Zithromax 250 MG TABLET PO SCH (09:04)
[2017-02-18] MEDS: ENOXAPARIN SODIUM SQ SCH (09:16)
[2017-02-18] MEDS ORDERED: PNEUMOVAX 23 IM ONE (10:00)
[2017-02-18] MEDS ORDERED: PROVENTIL 2.5 MG/3 ML NEB IH ONE (11:18)
[2017-02-18] MEDS ORDERED: PROVENTIL Solution 2.5 MG/0.5 ML IH ONE (11:35)
--- NOTE | 2017-02-18 13:07 | PCM.HP ---
History of Present Illness - Chief Complaint Chief Complaint: Shortness of Breath History of Present Illness: is a 26 year old female. with asthma who required intubation for same just a few months ago; pt developed shortness of breath this am and called EMS when three breathing treatmetns did not resolve her symptoms;pt also has cellulitis right eye being treated with ab , but has not been taking so will give AB in ER Timing/Duration: today Activities at Onset: none Severity of Dyspnea-Max: severe Severity of Dyspnea-Current: moderate Possible Cause: frequent episodes Modifying Factors: Improves With: albuterol nebulizer, oxygen Associated Symptoms: cough, wheezing - Review of Systems Constitutional: No Fever, No Chills Eyes: No Symptoms Ears, Nose, & Throat: No Symptoms Respiratory: Cough, Orthopnea, Short Of Breath, Wheezing Cardiac: No Chest Pain, No Edema, No Syncope Abdominal/Gastrointestinal: No Abdominal Pain, No Nausea, No Vomiting, No Diarrhea Genitourinary Symptoms: No Dysuria Musculoskeletal: No Back Pain, No Neck Pain Skin: No Rash Neurological: No Dizziness, No Focal Weakness, No Sensory Changes Psychological: No Symptoms Endocrine: No Symptoms Hematologic/Lymphatic: No Symptoms Immunological/Allergic: No Symptoms Medications & Allergies Home Medications: Home Medication List Albuterol Sulfate [Proair Hfa] 8.5 gm IH QID PRN 03/30/16 [History Confirmed ] Albuterol/Ipratropium 3ml Neb* [DUONEB 0.5-3 MG/3 ml Neb] 3 ml NEB QID [History Confirmed 02/17/17] Albuterol Sulfate [Albuterol Sulfate Hfa] 18 gm IH QID #1 hfa.aer.ad 11/22/16 [ Rx Confirmed 02/17/17] Ipratropium/Albuterol Sulfate [Combivent Inhaler] 14.7 gm IH DAILY #1 aer.w.adap 11/22/16 [Rx Confirmed 02/17/17] Cefdinir [Omnicef 300 mg] 300 mg PO BID #20 capsule 02/13/17 [Rx Confirmed 02/17/17] Allergies/Adverse Reactions: Allergies Allergy/AdvReac Type Severity Reaction Status Date / Time povidone-iodine Allergy Mild Blisters Verified 02/17/17 05:40 [From Betadine] soap [From Betadine] Allergy Mild Blisters Verified 02/17/17 05:40 sulfamethoxazole Allergy Mild "weird Verified 02/17/17 05:40 [From Bactrim] hives" trimethoprim [From Bactrim] Allergy Mild "weird Verified 02/17/17 05:40 hives" divalproex sodium Allergy Verified 02/17/17 05:40 [From Depakote] - Past Medical History Past Medical History: Yes Neurological History: Migraines ENT History: No Pertinent History Cardiac History: Other Respiratory History: Asthma, Bronchitis, Pneumonia Endocrine Medical History: No Pertinent History Musculoskelatal History: Fractures, Other GI Medical History: No Pertinent History History: No Pertinent History Pyscho-Social History: Anxiety, Depression Reproductive Disorders: No Pertinent History Comment: PARANOIA, undiagnosed heart valve issue - Female History Hx Last Menstrual Period: 01/19 Are you now?: No - Past Surgical History Past Surgical History: Yes Neuro Surgical History: No Pertinent History Cardiac History: No Pertinent History Respiratory Surgery: No Pertinent History GI Surgical History: Appendectomy Genitourinary Surgical Hx: No Pertinent History Musculskeletal Surgical Hx: Other Female Surgical History: Section Other Surgical History: Left elbow repair, right knee repair - Social History Smoking Status: Current every day smoker How long have you smoked: 15 years Exposure to second hand smoke: Yes Alcohol: None Drug Use: none Significant Family History: no pertinent family hx - Physical Exam Vital Signs: Vital Signs - 24 hr Temp Pulse Resp BP Pulse Ox 02/18/17 12:57 98.2 F 126 H 22 115/61 97 02/18/17 11:36 112 H 24 95 02/18/17 10:45 84 16 100 02/18/17 09:54 97.3 F 131 H 22 115/69 100 02/18/17 09:00 98.2 F 110 H 16 109/65 95 02/18/17 07:07 110 H 16 95 02/18/17 04:12 112 H 18 96 02/18/17 04:00 98.2 F 108 H 20 109/65 96 02/18/17 00:37 106 H 18 97 02/18/17 00:00 97.4 F 99 H 18 110/63 97 02/17/17 23:44 104 H 18 97 02/17/17 20:00 98.1 F 113 H 20 128/51 95 02/17/17 18:48 99 H 20 97 02/17/17 16:00 98 F 110 H 20 121/63 98 02/17/17 15:19 84 20 96 General Appearance: no apparent distress, alert Neurologic Exam: alert, oriented x 3, cooperative, normal mood/affect, nml cerebellar function, nml station & gait, sensation nml, No motor deficits Eye Exam: PERRL/EOMI, eyes nml inspection Ears, Nose, Throat Exam: normal ENT inspection, TMs normal, pharynx normal, moist mucous membranes Neck Exam: normal inspection, non-tender, supple, full range of motion Respiratory Exam: diminished breath sounds, prolonged expirations, rhonchi, wheezing, No respiratory distress Cardiovascular Exam: regular rate/rhythm, normal heart sounds, normal peripheral pulses Gastrointestinal/Abdomen Exam: soft, normal bowel sounds, No tenderness, No mass Back Exam: normal inspection, normal range of motion, No CVA tenderness, No vertebral tenderness Extremity Exam: normal inspection, normal range of motion, pelvis stable Skin Exam: normal color, warm, dry, No rash Lymphatic Exam: No adenopathy Results - Labs Lab/Micro Results: Lab Results-Last 24 Hours 02/18/17 02/18/17 Range/Units 05:25 05:25 WBC 10.6 H (4.0-10.5) K/mm3 RBC 3.95 L (4.1-5.4) M/mm3 Hgb 12.4 (12.0-16.0) gm/dl Hct 36.0 (35-47) % MCV 91.1 (78-100) fl MCH 31.3 (26-32) pg MCHC 34.4 (32-36) g/dl RDW 13.3 (11.5-14.0) % Plt Count 231 (150-450) K/mm3 MPV 10.5 H (6-9.5) fl Sodium 143 (136-145) mEq/L Potassium 3.9 (3.5-5.1) mEq/L Chloride 111 H (98-107) mEq/L Carbon Dioxide 19.1 L (21-32) mEq/L Anion Gap 16.5 H (5-15) MEQ/L BUN 7 L (9-20) mg/dL Creatinine 0.70 (0.55-1.30) mg/dl Estimated GFR > 60 ML/MIN Glucose 184 H (70-110) MG/DL Calcium 8.5 (8.5-10.1) mg/dL - Other Procedures and Tests Respiratory Therapy 02/17/17 15:19 Respiratory Nebulizer Q4H 02/18/17 11:40 Oxygen NASAL CANNULA 2 lpm Assessment/Plan (1) Asthma exacerbation Current Visit: Yes Status: Acute Code(s): J45.901 - UNSPECIFIED ASTHMA WITH (ACUTE) EXACERBATION (2) Anxiety Current Visit: No Status: Acute Code(s): F41.9 - ANXIETY DISORDER, UNSPECIFIED (3) History of asthma Current Visit: No Status: Chronic Code(s): Z87.09 - PERSONAL HISTORY OF OTHER DISEASES OF THE RESPIRATORY SYSTEM
[2017-02-18 17:01] VITALS: BP 123/56; PULSE 120; O2SAT 97
== END 2017-02-18 17:40 | disposition home or self-care (01) ==
LOC: ED 05:33 → MED SURG 08:23
PROVIDERS: ADMIT Internal Medicine; ATTEND Internal Medicine
DX: J45.901 Unspecified asthma with (acute) exacerbation (principal); F41.9 Anxiety disorder, unspecified; Z72.0 Tobacco use; J18.9 Pneumonia, unspecified organism; Z79.899 Other long term (current) drug therapy
CPT/HCPCS: 36000; 36415; 71020; 80048; 80053; 83605; 83735; 84703; 85025; 85027; 87070; 87430; 87631; 90732; 93005; 93041; 93268; 94640; 94760; 96360; 96361; 96365; 96367; 96374; 99285; G0378; J0696; J1650; J2920; J2930; J3475; A9270-GY

== ENCOUNTER 2017-03-19 21:45 | Emergency (ER) | payer OTHER ==
--- NOTE | 2017-03-19 22:25 | ERPHSYRPT ---
- History of Present Illness Time Seen by Provider: 03/19/17 22:11 Source: patient Exam Limitations: no limitations Patient Subjective Stated Complaint: STATES THAT SHE HAS HAD AN INCREASE IN ASTHMA ATTACKS FOR THE LAST COUPLE OF DAYS WITH COUGH PRODUCTIVE OF THICK GREEN SPUTUM Triage Nursing Assessment: WC TO TREATMENT AREA - LIMPING TO CART. ALERT/ ORIENTED - PLEASANT AFFECT. SKIN PWD - NO RASH/INJURY. RESPS EASY - NON- LAOBRED Physician History: This is a 26-year-old white female with history of migraines, asthma, bronchitis , pneumonia, anxiety, depression Patient states that she has been having increased episodes of a worsening of her asthma for the past 2 days she states she is cold out the ambulance 3 times she states that she has not gone to the hospital after this because she needed somebody to take care of her kids. She feels like she has a lung infection she states she is coughing up green sputum. Patient does have a nebulizer at home but she feels like the ones she gets at the hospital work better. Past medical history includes migraines, asthma, bronchitis, pneumonia, fractures, anxiety, depression, chlamydia, paranoia, some undiagnosed heart valve issue. Past surgical history includes appendectomy, , left elbow surgery, right knee surgery. Social history positive for tobacco use Timing/Duration: day(s) (2 days) Severity: moderate Modifying Factors: Worsens With: eating, immobilization, medication, movement, rest, acetaminophen, ibuprofen, nothing Associated Symptoms: cough, No nausea, No vomiting, No abdominal pain, No heartburn, No diaphoresis, No chills, No chest pain, No fever, No headaches, No loss of appetite, No malaise, No rash, No syncope, No seizure, No weakness Allergies/Adverse Reactions: povidone-iodine [From Betadine] Allergy (Mild, Verified 03/19/17 21:53) Blisters soap [From Betadine] Allergy (Mild, Verified 03/19/17 21:53) Blisters sulfamethoxazole [From Bactrim] Allergy (Mild, Verified 03/19/17 21:53) "weird hives" trimethoprim [From Bactrim] Allergy (Mild, Verified 03/19/17 21:53) "weird hives" divalproex sodium [From Depakote] Allergy (Verified 03/19/17 21:53) according to family Home Medications: Albuterol/Ipratropium 3ml Neb* [DUONEB 0.5-3 MG/3 ml Neb] 3 ml NEB QID [History] Hx Tetanus, Diphtheria Vaccination/Date Given: Yes Hx Influenza Vaccination/Date Given: No Hx Pneumococcal Vaccination/Date Given: No Immunizations Up to Date: Yes - Review of Systems Constitutional: No Fever, No Chills Eyes: No Symptoms, No Discharge, No Eye Pain, No Eye Redness, No Itchy, No Photophobia, No Tearing, No Vision Changes, No Double Vision, No Foreign Body Sensation Ears, Nose, & Throat: No Symptoms, No Ear Pain, No Ear Discharge, No Hearing Changes, No Tinnitus, No Nose Pain, No Nose Congestion, No Nose Discharge, No Sinus Drainage, No Epistaxis, No Mouth Pain, No Mouth Swelling, No Loose Teeth, No Throat Pain, No Throat Swelling, No Hoarse, No Painful Swallowing, No Snoring , No Stridor Respiratory: Cough, Dyspnea, Wheezing, No Cyanosis, No Dyspnea on Exertion (DUBON) , No Stridor Cardiac: No Chest Pain, No Edema, No Syncope Abdominal/Gastrointestinal: No Abdominal Pain, No Nausea, No Vomiting, No Diarrhea Genitourinary Symptoms: No Dysuria Musculoskeletal: No Back Pain, No Neck Pain Skin: No Rash Neurological: No Dizziness, No Focal Weakness, No Sensory Changes Psychological: No Symptoms Endocrine: No Symptoms All Other Systems: Reviewed and Negative - Past Medical History Pertinent Past Medical History: Yes Neurological History: Migraines ENT History: No Pertinent History Cardiac History: Other Respiratory History: Asthma, Bronchitis, Pneumonia Endocrine Medical History: No Pertinent History Musculoskeletal History: Fractures, Other GI Medical History: No Pertinent History History: No Pertinent History Psycho-Social History: Anxiety, Depression Female Reproductive Disorders: No Pertinent History Other Medical History: PARANOIA, undiagnosed heart valve issue - Past Surgical History Past Surgical History: Yes Neuro Surgical History: No Pertinent History Cardiac: No Pertinent History Respiratory: No Pertinent History Gastrointestinal: Appendectomy Genitourinary: No Pertinent History Musculoskeletal: Other Female Surgical History: Section Other Surgical History: Left elbow repair, right knee repair - Social History Smoking Status: Never smoker How long have you smoked: 15 years Exposure to second hand smoke: No Drug Use: none Patient Lives Alone: No Significant Family History: no pertinent family hx - Female History Hx Last Menstrual Period: 1 WEEK Hx Now: No - Nursing Vital Signs Nursing Vital Signs: Initial Vital Signs Temperature 98.2 F Temperature Source Oral Pulse Rate 83 Respiratory Rate 16 Blood Pressure [] 119/74 Pain Intensity 0 - Physical Exam General Appearance: no apparent distress, alert Eye Exam: PERRL/EOMI, eyes nml inspection Ears, Nose, Throat Exam: normal ENT inspection, TMs normal, pharynx normal, moist mucous membranes Neck Exam: normal inspection, non-tender, supple, full range of motion Respiratory Exam: other (lungswith very rare breath sounds otherwise clear bilaterally patient does have a a cough which is somewhat forced after deep inspiration) Cardiovascular Exam: regular rate/rhythm, normal heart sounds, normal peripheral pulses Gastrointestinal/Abdomen Exam: soft, normal bowel sounds, No tenderness, No mass Back Exam: normal inspection, normal range of motion, No CVA tenderness, No vertebral tenderness Extremity Exam: normal inspection, normal range of motion, pelvis stable Neurologic Exam: alert, oriented x 3, cooperative, normal mood/affect, nml cerebellar function, nml station & gait, sensation nml, No motor deficits Skin Exam: normal color Lymphatic Exam: No adenopathy SpO2 Interpretation: normal (98%) SpO2: 98 Oxygen Delivery: Room Air - Course Nursing assessment & vital signs reviewed: Yes - Radiology Exams Chest X-ray Interpretation: No Pneumonia, No Pneumothorax, Other (no acute disease process) Ordered Tests: Active Orders 24 hr Category Date Time Status IV Insertion STAT Care 03/19/17 22:16 Active Pulse Oximetry (ED) STAT Care 03/19/17 22:16 Active CHEST 1 VIEW (PORTABLE) Stat Exams 03/19/17 22:17 Taken CBC W DIFF Stat Lab 03/19/17 22:25 Completed CMP Stat Lab 03/19/17 22:25 Completed HCG QUALITATIVE,SERUM Stat Lab 03/19/17 22:25 Completed VENOUS BLOOD GAS Urgent Lab 03/19/17 22:16 Completed Peak Expiratory Flow Rate ONCE RT 03/19/17 23:40 Active Respiratory Nebulizer STAT RT 03/19/17 23:18 Active Medication Summary Discontinued Medications Generic Name Dose Route Start Last Admin Trade Name Freq PRN Reason Stop Dose Admin Albuterol/Ipratropium 3 ml 03/19/17 23:17 03/19/17 23:45 Duoneb 0.5-3 Mg/3 Ml Neb IH 03/19/17 23:18 3 ml STAT ONE Administration Albuterol/Ipratropium Confirm 03/19/17 23:40 Duoneb 0.5-3 Mg/3 Ml Neb Administered 03/19/17 23:41 Dose 3 ml IH .STK-MED ONE Methylprednisolone Sodium Succinate 125 mg 03/19/17 22:34 03/19/17 22:42 Solu-Medrol 125 Mg IV 03/19/17 22:35 125 mg STAT ONE Administration Methylprednisolone Sodium Succinate Confirm 03/19/17 22:36 Solu-Medrol 125 Mg Administered 03/19/17 22:37 Dose 125 mg .ROUTE .STK-MED ONE Lab/Rad Data: Laboratory Result Diagrams 03/19/17 22:25 03/19/17 22:25 Laboratory Results 03/19/17 03/19/17 03/19/17 Range/Units 22:25 22:25 22:25 WBC 6.4 (4.0-10.5) K/mm3 RBC 4.74 (4.1-5.4) M/mm3 Hgb 14.4 (12.0-16.0) gm/dl Hct 42.1 (35-47) % MCV 88.8 (78-100) fl MCH 30.4 (26-32) pg MCHC 34.2 (32-36) g/dl RDW 13.3 (11.5-14.0) % Plt Count 308 (150-450) K/mm3 MPV 9.9 H (6-9.5) fl Gran % 44.3 (36.0-66.0) % Lymphocytes % 40.0 (24.0-44.0) % Monocytes % 8.2 (0.0-12.0) % Eosinophils % 6.6 H (0.00-5.0) % Basophils % 0.9 (0.0-0.4) % Basophils # 0.06 (0-0.4) VBG pH (7.32-7.42) VBG pCO2 at Pat Temp (42-55) mm/Hg VBG pO2 at Pat Temp (25-40) mm/Hg VBG HCO3 (22-28) meq/L VBG O2 Sat (Jill) (95-100) VBG Base Excess (-2.0-2.0) VBG Hemoglobin VBG Carboxyhemoglobin (0.0-6.9) % T HGB POC Potassium (3.5-5.1) Sodium 142 (136-145) mEq/L Potassium 3.5 (3.5-5.1) mEq/L Chloride 106 (98-107) mEq/L Carbon Dioxide 24.7 (21-32) mEq/L Anion Gap 15.2 H (5-15) MEQ/L BUN 13 (9-20) mg/dL Creatinine 0.91 (0.55-1.30) mg/dl Estimated GFR > 60 ML/MIN Glucose 94 (70-110) MG/DL Calcium 8.9 (8.5-10.1) mg/dL Total Bilirubin 0.3 (0.2-1.0) mg/dL AST 11 L (15-37) U/L ALT 9 L (12-78) U/L Alkaline Phosphatase 74 (46-116) U/L Serum Total Protein 7.5 (6.4-8.2) gm/dL Albumin 4.0 (3.4-5.0) g/dL Serum , Qual NEGATIVE (Negative) 03/19/17 Range/Units 22:16 WBC (4.0-10.5) K/mm3 RBC (4.1-5.4) M/mm3 Hgb (12.0-16.0) gm/dl Hct (35-47) % MCV (78-100) fl MCH (26-32) pg MCHC (32-36) g/dl RDW (11.5-14.0) % Plt Count (150-450) K/mm3 MPV (6-9.5) fl Gran % (36.0-66.0) % Lymphocytes % (24.0-44.0) % Monocytes % (0.0-12.0) % Eosinophils % (0.00-5.0) % Basophils % (0.0-0.4) % Basophils # (0-0.4) VBG pH 7.37 (7.32-7.42) VBG pCO2 at Pat Temp 46 (42-55) mm/Hg VBG pO2 at Pat Temp 33 (25-40) mm/Hg VBG HCO3 26.6 (22-28) meq/L VBG O2 Sat (Jill) 71.0 L (95-100) VBG Base Excess 0.7 (-2.0-2.0) VBG Hemoglobin 15.0 VBG Carboxyhemoglobin 5.8 (0.0-6.9) % T HGB POC Potassium 3.5 (3.5-5.1) Sodium (136-145) mEq/L Potassium (3.5-5.1) mEq/L Chloride (98-107) mEq/L Carbon Dioxide (21-32) mEq/L Anion Gap (5-15) MEQ/L BUN (9-20) mg/dL Creatinine (0.55-1.30) mg/dl Estimated GFR ML/MIN Glucose (70-110) MG/DL Calcium (8.5-10.1) mg/dL Total Bilirubin (0.2-1.0) mg/dL AST (15-37) U/L ALT (12-78) U/L Alkaline Phosphatase (46-116) U/L Serum Total Protein (6.4-8.2) gm/dL Albumin (3.4-5.0) g/dL Serum , Qual (Negative) - Progress Progress: improved Progress Note: 03/19/17 22:23 This is a 26-year-old white female with history of asthma, migraines, bronchitis , pneumonia, anxiety, depression. She arrives with complaints of shortness of breath wheezing and cough symptoms going on for 2 days she states that she had called about the medics 3 times in the past several days but chose not to go to the emergency room because she did not have anybody to watch her kids. She states that she feels like she gets a better relief from the nebulizers which are provided by the medics and the hospital. She states she is coughing green sputum. She is brought in by a friend today she states she didn't albuterol treatment about 20 minutes prior to arrival. On physical examination patient is alert oriented 3 she does not appear to be in acute distress. Lungs at this time are essentially clear with a few scattered wheezes, Patient does cough after being asked to take a deep breath. Will go ahead and obtain CBC CMP, hCG and plan on chest x-ray. Patient really not requiring an albuterol treatment at this time Will reassess. 03/19/17 23:18 Patient's labs essentially normal chest x-ray no acute disease process noted. Will give patient DuoNeb treatment she has received Solu-Medrol not really hearing a lot of wheezing at this time . 03/19/17 23:52 Patient is better after DuoNeb treatment. Peak flows go from 260-380. Will give patient Zithromax and write for Zithromax Z-Miriam. Patient states she is out of her Pro Air inhaler Will ask respiratory to provide one for her. Will send home on tapering dose of prednisone. - Departure Time of Disposition: 23:53 Departure Disposition: Home Clinical Impression: Asthma with exacerbation Qualifiers: Asthma severity: unspecified severity Qualified Code(s): J45.901 - Unspecified asthma with (acute) exacerbation Condition: Fair Critical Care Time: No Additional Instructions: Return home. Tapering dose of prednisone as directed. Zithromax Z-MIRIAM as directed.. Provera inhaler 2 puffs every 4-6 hours as needed. Plenty of fluids. Stop smoking. Follow-up with Dr. Elizabeth. Return for acute distress or for severe symptoms. Prescriptions: Albuterol Sulfate [Proair Hfa] 8.5 gm IH Q4H PRN PRN #0 [email or web address] PRN Reason: sob, wheezing Azithromycin 250 mg [Zithromax 250 MG TABLET] 0 mg PO ZPACK #6 tablet
[2017-03-19 22:30] LABS: BASOPHIL % 0.9 % (0.0-0.4); Eosinophil % 6.6 % (0.00-5.0); Granulocytes % 44.3 % (36.0-66.0); Mean Cell Volume 88.8 fl (78-100); Mean Corpuscular Hemoglobin 30.4 pg (26-32); Mean Platelet Volume 9.9 fl (6-9.5); Monocytes % 8.2 % (0.0-12.0); Platelet Count 308 K/mm3 (150-450); Red Blood Count 4.74 M/mm3 (4.1-5.4); Red Cell Distribution Width 13.3 % (11.5-14.0); White Blood Count 6.4 K/mm3 (4.0-10.5)
[2017-03-19] MEDS ORDERED: solu-MEDROL 125 MG IV ONE (22:34)
[2017-03-19] MEDS ORDERED: solu-MEDROL 125 MG ONE (22:36)
[2017-03-19 22:39] LABS: VBG BASE EXCESS 0.7 (-2.0-2.0); VBG CARBOXYHEMOGLOBIN 5.8 % T HGB (0.0-6.9); VBG HCO3- 26.6 meq/L (22-28); VBG POTASSIUM 3.5 (3.5-5.1); VBG pH 7.37 (7.32-7.42)
[2017-03-19 23:11] LABS: ALKALINE PHOSPHATASE 74 U/L (46-116); ANION GAP 15.2 MEQ/L (5-15); BILIRUBIN,TOTAL 0.3 mg/dL (0.2-1.0); BLOOD UREA NITROGEN 13 mg/dL (9-20); CHLORIDE 106 mEq/L (98-107); Carbon Dioxide 24.7 mEq/L (21-32); Glucose 94 MG/DL (70-110); Potassium 3.5 mEq/L (3.5-5.1); SGOT/AST 11 U/L (15-37); SGPT/ALT 9 U/L (12-78); SODIUM 142 mEq/L (136-145); Total Protein 7.5 gm/dL (6.4-8.2)
[2017-03-19] MEDS ORDERED: DUONEB 0.5-3 MG/3 ml Neb IH ONE ×2 (23:17→23:40)
[2017-03-19 23:52] VITALS: PULSE 83
[2017-03-19] MEDS ORDERED: Proair Hfa MDI IH ONE (23:55)
[2017-03-19] MEDS ORDERED: Zithromax 250 MG TABLET PO ONE (23:58)
[2017-03-20] MEDS ORDERED: Zithromax 250 MG TABLET ONE
[2017-03-20 00:07] VITALS: BP 138/90; O2SAT 99
--- NOTE | 2017-03-20 09:38 | XRAY ---
Exam: AP portable chest film from 2300 hrs. on 03/19/2017. Comparison: Two-view chest from 02/17/2017. Indication: Exacerbation of asthma, cough. Findings: The heart size and contour are normal. The patient is rotated slightly toward the right. The lungs are well inflated, but do not appear hyperinflated. No air space infiltrates, vascular congestion, pneumothorax, or pleural fluid is seen. The visualized bones appear grossly intact. Impression: 1. No air space infiltrates to suggest focal pneumonia or other acute cardiopulmonary disease is seen.
== END 2017-03-20 00:07 | disposition home or self-care (01) ==
LOC: ED 21:45
DX: J45.901 Unspecified asthma with (acute) exacerbation (principal)
CPT/HCPCS: 36000; 36415; 71010; 80053; 82805; 84703; 85025; 94150; 94640; 96374; 99284; J2930; A9270-GY

== ENCOUNTER 2017-05-05 12:27 | Emergency (ER) | payer OTHER ==
[~2017-05-05 12:27] MED LIST: DUONEB 0.5-3 MG/3 ml Neb IH ONE
[2017-05-05] MEDS ORDERED: PROVENTIL 2.5 MG/3 ML NEB IH ONE (12:34)
[2017-05-05] MEDS ORDERED: solu-MEDROL 125 MG IV ONE (12:34)
[2017-05-05] MEDS ORDERED: Sodium Chloride 0.9% 1000 ML 1,000 ML IV STA (12:34)
[2017-05-05] MEDS ORDERED: DUONEB 0.5-3 MG/3 ml Neb IH ONE (12:39)
--- NOTE | 2017-05-05 12:40 | ERPHSYRPT ---
- History of Present Illness Time Seen by Provider: 05/05/17 12:35 Source: patient Exam Limitations: clinical condition Physician History: PATIENT WITH HISTORY OF ASTHMA, RESPIRATORY ARREST COMPLAINS OF DIFFICULTY BREATHING, SHORTNESS OF BREATH AND A PRODUCTIVE COUGH OVER THE PAST 3-4 DAYS. DENIES FEVER CHILLS OR CHEST PAIN, Timing/Duration: day(s) Activities at Onset: activity Severity of Dyspnea-Max: moderate Severity of Dyspnea-Current: moderate Possible Cause: occasional episodes, smoke exposure Modifying Factors: Improves With: albuterol nebulizer, coughing Associated Symptoms: cough (SMOKING CIGARETTS) International travel in last 2 weeks: No Allergies/Adverse Reactions: povidone-iodine [From Betadine] Allergy (Mild, Verified 03/19/17 21:53) Blisters soap [From Betadine] Allergy (Mild, Verified 03/19/17 21:53) Blisters sulfamethoxazole [From Bactrim] Allergy (Mild, Verified 03/19/17 21:53) "weird hives" trimethoprim [From Bactrim] Allergy (Mild, Verified 03/19/17 21:53) "weird hives" divalproex sodium [From Depakote] Allergy (Verified 03/19/17 21:53) according to family Home Medications: Albuterol/Ipratropium 3ml Neb* [DUONEB 0.5-3 MG/3 ml Neb] 3 ml NEB QID [History] Hx Tetanus, Diphtheria Vaccination/Date Given: Yes Hx Influenza Vaccination/Date Given: No Hx Pneumococcal Vaccination/Date Given: No - Review of Systems Constitutional: No Symptoms, No Fever, No Chills Eyes: No Symptoms Ears, Nose, & Throat: No Symptoms Respiratory: Cough, Dyspnea, Wheezing Cardiac: No Symptoms, No Chest Pain, No Edema, No Syncope Abdominal/Gastrointestinal: No Symptoms, No Abdominal Pain, No Nausea, No Vomiting, No Diarrhea Genitourinary Symptoms: No Dysuria Musculoskeletal: No Back Pain, No Neck Pain Skin: No Rash Neurological: No Dizziness, No Focal Weakness, No Sensory Changes Psychological: No Symptoms Endocrine: No Symptoms All Other Systems: Reviewed and Negative - Past Medical History Pertinent Past Medical History: Yes Neurological History: Migraines ENT History: No Pertinent History Cardiac History: Other Respiratory History: Asthma, Bronchitis, Pneumonia Endocrine Medical History: No Pertinent History Musculoskeletal History: Fractures, Other GI Medical History: No Pertinent History History: No Pertinent History Psycho-Social History: Anxiety, Depression Female Reproductive Disorders: No Pertinent History Other Medical History: PARANOIA, undiagnosed heart valve issue - Past Surgical History Past Surgical History: Yes Neuro Surgical History: No Pertinent History Cardiac: No Pertinent History Respiratory: No Pertinent History Gastrointestinal: Appendectomy Genitourinary: No Pertinent History Musculoskeletal: Other Female Surgical History: Section Other Surgical History: Left elbow repair, right knee repair - Social History Smoking Status: Never smoker How long have you smoked: 15 years Exposure to second hand smoke: No Drug Use: none Patient Lives Alone: No Significant Family History: no pertinent family hx - Female History Hx Now: No - Nursing Vital Signs Nursing Vital Signs: Initial Vital Signs Temperature 98.7 F Temperature Source Oral Pulse Rate 86 Respiratory Rate 18 Blood Pressure [] 112/62 Pain Intensity 0 - Physical Exam General Appearance: no apparent distress, alert Eye Exam: PERRL/EOMI Ears, Nose, Throat Exam: hearing grossly normal Neck Exam: normal inspection, supple Respiratory Exam: diminished breath sounds, other (THERE IS TERMINAL EXPIRATORY WHEEZES) Cardiovascular/Chest Exam: normal heart sounds, regular rate/rhythm Abdominal/Gastrointestinal Exam: soft, normal bowel sounds, No tenderness, No distention, No mass Extremity Exam: non-tender, normal range of motion, normal inspection, no calf tenderness, no pedal edema Peripheral Pulses Exam: carotid (R): 2+, carotid (L): 2+, femoral (R): 2+, femoral (L): 2+, dorsalis-pedis (R): 2+, dorsalis-pedis (L): 2+ Neurologic Exam: alert, oriented x 3, cooperative, medical reception specialist II-XII nml as tested, sensation nml, No motor deficits Skin Exam: normal color, warm, No dry SpO2 Interpretation: normal SpO2: 98 - Radiology Exams Chest X-ray Interpretation: Negative Ordered Tests: Active Orders 24 hr Category Date Time Status Director Of Admissions STAT Care 05/05/17 12:34 Active IV Insertion STAT Care 05/05/17 12:34 Active CHEST 1 VIEW (PORTABLE) Stat Exams 05/05/17 12:38 Taken CBC W DIFF Stat Lab 05/05/17 12:34 Completed HCG,QUALITATIVE URINE Stat Lab 05/05/17 12:38 Completed Urine Triage Profile Stat Lab 05/05/17 13:04 Completed Peak Expiratory Flow Rate ONCE RT 05/05/17 12:39 Active Respiratory Nebulizer STAT RT 05/05/17 12:38 Active Respiratory Nebulizer STAT RT 05/05/17 14:38 Active Medication Summary Discontinued Medications Generic Name Dose Route Start Last Admin Trade Name Freq PRN Reason Stop Dose Admin Albuterol Sulfate 2.5 mg 05/05/17 12:34 05/05/17 14:13 Proventil 2.5 Mg/3 Ml Neb IH 05/05/17 12:35 Not Given STAT ONE Albuterol/Ipratropium Confirm 05/05/17 12:39 Duoneb 0.5-3 Mg/3 Ml Neb Administered 05/05/17 12:40 Dose 3 ml IH .STK-MED ONE Albuterol/Ipratropium 3 ml 05/05/17 12:15 Duoneb 0.5-3 Mg/3 Ml Neb IH 05/05/17 12:16 STAT ONE Sodium Chloride 1,000 mls @ 999 mls/hr 05/05/17 12:34 05/05/17 12:46 Sodium Chloride 0.9% 1000 Ml IV 05/05/17 13:34 999 mls/hr .Q1H1M STA Administration Sodium Chloride Confirm 05/05/17 12:45 Sodium Chloride 0.9% 1000 Ml Administered 05/05/17 12:46 Dose 1,000 mls @ ud .ROUTE .STK-MED ONE Methylprednisolone Sodium Succinate 125 mg 05/05/17 12:34 05/05/17 12:48 Solu-Medrol 125 Mg IV 05/05/17 12:35 125 mg STAT ONE Administration Methylprednisolone Sodium Succinate Confirm 05/05/17 12:45 Solu-Medrol 125 Mg Administered 05/05/17 12:46 Dose 125 mg .ROUTE .STK-MED ONE Lab/Rad Data: Laboratory Result Diagrams 05/05/17 12:34 Laboratory Results 05/05/17 05/05/17 05/05/17 Range/Units 13:04 12:38 12:34 WBC 9.4 (4.0-10.5) K/mm3 RBC 4.76 (4.1-5.4) M/mm3 Hgb 14.5 (12.0-16.0) gm/dl Hct 42.2 (35-47) % MCV 88.7 (78-100) fl MCH 30.5 (26-32) pg MCHC 34.4 (32-36) g/dl RDW 13.5 (11.5-14.0) % Plt Count 248 (150-450) K/mm3 MPV 10.2 H (6-9.5) fl Gran % 71.3 H (36.0-66.0) % Lymphocytes % 19.4 L (24.0-44.0) % Monocytes % 4.9 (0.0-12.0) % Eosinophils % 3.9 (0.00-5.0) % Basophils % 0.5 (0.0-0.4) % Basophils # 0.05 (0-0.4) Urine HCG, Qual NEGATIVE (Negative) Urine Opiates Level NEG. (NEGATIVE) Ur Methadone NEG. (NEGATIVE) Urine Barbiturates NEG. (NEGATIVE) Ur Phencyclidine (PCP) NEG. (NEGATIVE) Urine Amphetamine NEG. (NEGATIVE) U Benzodiazepine Level NEG. (NEGATIVE) Urine Cocaine NEG. (NEGATIVE) Urine Marijuana (THC) POS. (NEGATIVE) - Progress Progress: improved Progress Note: 05/05/17 13:28 PATIENT ADMINISTERED A DUONEB AEROSOL, IV FLUIDS NORMAL SALINE SOLUMEDROL 125MG IV,. ROCEPHIN 1GM IVPB Counseled pt/family regarding: lab results, diagnosis, need for follow-up, rad results - Departure Time of Disposition: 14:50 Departure Disposition: Home Clinical Impression: ACUTE ASTHMATIC BRONCHITIS Condition: Stable Critical Care Time: No Referrals: CARLENE MENA MD [Primary Care Provider] - Additional Instructions: AVOID SMOKING. ANTIBIOTIC AUGMENTIN 875MG TWICE DAILY FOR 10 DAYS. PREDNISONE 20MG, 2 TABLETS DAILY FOR 5 DAYS. ALBUTEROL AEROSOL TREATMENTS EVERY 3-4 HOURS NEEDED. CONSULT YOUR FAMILY PHYSICIAN FOR FOLLOWUP IN 1 WEEK. RETURN TO EMERGENCY FOR DIFFICULTY BREATHING. Prescriptions: Albuterol 2.5 mg/3 ml Neb [Proventil 2.5 mg/3 ml Neb] 2.5 mg IH STAT #30 neb Amox Tr/Potass Clav. 875 mg [Augmentin 875-125 Tablet] 875 mg PO BID #20 tablet Prednisone 20 mg [Deltasone 20 mg] 2 tab PO DAILY #8 tablet
[2017-05-05] MEDS ORDERED: solu-MEDROL 125 MG ONE (12:45)
[2017-05-05] MEDS ORDERED: Sodium Chloride 0.9% 1000 ML 1,000 ML ONE (12:45)
[2017-05-05 13:01] LABS: BASOPHIL % 0.5 % (0.0-0.4); Eosinophil % 3.9 % (0.00-5.0); Granulocytes % 71.3 % (36.0-66.0); Lymphocytes % 19.4 % (24.0-44.0); Mean Cell Volume 88.7 fl (78-100); Mean Corpuscular Hemoglobin 30.5 pg (26-32); Mean Platelet Volume 10.2 fl (6-9.5); Monocytes % 4.9 % (0.0-12.0); Platelet Count 248 K/mm3 (150-450); Red Blood Count 4.76 M/mm3 (4.1-5.4); Red Cell Distribution Width 13.5 % (11.5-14.0); White Blood Count 9.4 K/mm3 (4.0-10.5)
[2017-05-05 13:29] VITALS: O2SAT 98
[2017-05-05 15:10] VITALS: BP 121/70; PULSE 70
--- NOTE | 2017-05-05 18:50 | XRAY ---
Indication: Cough. Dyspnea. Comparison: March 19, 2017. Portable chest again demonstrates normal heart and lungs. Bony thorax intact.
== END 2017-05-05 15:10 | disposition home or self-care (01) ==
LOC: ED 12:27
DX: J45.998 Other asthma (principal); R05 Cough; R06.00 Dyspnea, unspecified; R06.2 Wheezing
CPT/HCPCS: 36000; 36415; 71010; 80307; 84703; 85025; 93041; 94150; 94640; 96360; 96374; 99284; J2930; A9270-GY

== ENCOUNTER 2017-05-18 22:30 | Emergency (ER) | payer OTHER ==
[2017-05-18] MEDS ORDERED: DUONEB 0.5-3 MG/3 ml Neb IH ONE ×2 (22:37→22:46)
[2017-05-18] MEDS ORDERED: solu-MEDROL 125 MG IV ONE (22:37)
[2017-05-18] MEDS ORDERED: Sodium Chloride 0.9% 1000 ML 1,000 ML IV STA (22:37)
--- NOTE | 2017-05-18 22:37 | ERPHSYRPT ---
- History of Present Illness Time Seen by Provider: 05/18/17 22:35 Source: patient Exam Limitations: no limitations Physician History: 27 year old patient with known history of asthma neb treatmetns not effective today. no fever, no vomiting, no CP; Timing/Duration: today Activities at Onset: none Severity of Dyspnea-Max: moderate Severity of Dyspnea-Current: moderate Possible Cause: frequent episodes, chronic episodes Modifying Factors: Improves With: albuterol nebulizer Associated Symptoms: cough Allergies/Adverse Reactions: povidone-iodine [From Betadine] Allergy (Mild, Verified 05/18/17 23:07) Blisters soap [From Betadine] Allergy (Mild, Verified 05/18/17 23:07) Blisters sulfamethoxazole [From Bactrim] Allergy (Mild, Verified 05/18/17 23:07) "weird hives" trimethoprim [From Bactrim] Allergy (Mild, Verified 05/18/17 23:07) "weird hives" divalproex sodium [From Depakote] Allergy (Verified 05/18/17 23:07) according to family Home Medications: Albuterol/Ipratropium 3ml Neb* [DUONEB 0.5-3 MG/3 ml Neb] 3 ml NEB QID [History] Bupropion HCl [Bupropion HCl Sr] mg PO BID 05/18/17 [History] Sertraline HCl 50 mg [Zoloft 50 mg Tablet] PO DAILY 05/18/17 [History] Hx Tetanus, Diphtheria Vaccination/Date Given: Yes Hx Influenza Vaccination/Date Given: No Hx Pneumococcal Vaccination/Date Given: No - Review of Systems Constitutional: No Fever, No Chills Eyes: No Symptoms Ears, Nose, & Throat: No Symptoms Respiratory: Cough, Dyspnea, Wheezing, No Stridor Cardiac: No Chest Pain, No Edema, No Syncope Abdominal/Gastrointestinal: No Abdominal Pain, No Nausea, No Vomiting, No Diarrhea Genitourinary Symptoms: No Dysuria Musculoskeletal: No Back Pain, No Neck Pain Skin: No Rash Neurological: No Dizziness, No Focal Weakness, No Sensory Changes Psychological: No Symptoms Endocrine: No Symptoms All Other Systems: Reviewed and Negative - Past Medical History Pertinent Past Medical History: Yes Neurological History: Migraines ENT History: No Pertinent History Cardiac History: Other Respiratory History: Asthma, Bronchitis, Pneumonia Endocrine Medical History: No Pertinent History Musculoskeletal History: Fractures, Other GI Medical History: No Pertinent History History: No Pertinent History Psycho-Social History: Anxiety, Depression Female Reproductive Disorders: No Pertinent History Other Medical History: PARANOIA, undiagnosed heart valve issue - Past Surgical History Past Surgical History: Yes Neuro Surgical History: No Pertinent History Cardiac: No Pertinent History Respiratory: No Pertinent History Gastrointestinal: Appendectomy Genitourinary: No Pertinent History Musculoskeletal: Other Female Surgical History: Section Other Surgical History: Left elbow repair, right knee repair - Social History Smoking Status: Never smoker How long have you smoked: 15 years Exposure to second hand smoke: No Drug Use: none Patient Lives Alone: No Significant Family History: no pertinent family hx - Female History Hx Now: No - Nursing Vital Signs Nursing Vital Signs: Initial Vital Signs Temperature 98.1 F Temperature Source Oral Pulse Rate 78 Respiratory Rate 20 Blood Pressure [Right Arm] 135/77 Pain Intensity 4 - Physical Exam General Appearance: no apparent distress, alert Eye Exam: PERRL/EOMI Neck Exam: normal inspection, supple Respiratory Exam: airway intact, wheezing Cardiovascular/Chest Exam: normal heart sounds, regular rate/rhythm Abdominal/Gastrointestinal Exam: soft, No tenderness, No distention, No mass Extremity Exam: non-tender, normal range of motion, normal inspection, no calf tenderness, no pedal edema Peripheral Pulses Exam: carotid (R): 2+, carotid (L): 2+, femoral (R): 2+, femoral (L): 2+, dorsalis-pedis (R): 2+, dorsalis-pedis (L): 2+ Neurologic Exam: alert, oriented x 3, cooperative, 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 as tested, sensation nml, No motor deficits Skin Exam: normal color, warm, No dry SpO2 Interpretation: normal - Course Nursing assessment & vital signs reviewed: Yes EKG Interpreted by Me: Sinus Rhythm, NORMAL AXIS, LAFB, Non-specific ST Changes , Other (similar to previous) Ordered Tests: Active Orders 24 hr Category Date Time Status IV Insertion STAT Care 05/18/17 22:37 Active CHEST 2 VIEWS (PA AND LAT) Stat Exams 05/18/17 22:38 Taken CBC W DIFF Stat Lab 05/18/17 22:59 Completed CULTURE, THROAT Stat Lab 05/18/17 22:59 Received HCG QUALITATIVE,SERUM Stat Lab 05/18/17 22:45 Completed STREP SCREEN-BETA A Stat Lab 05/18/17 22:59 Completed Respiratory Nebulizer STAT RT 05/18/17 22:39 Completed Medication Summary Discontinued Medications Generic Name Dose Route Start Last Admin Trade Name Marlen PRN Reason Stop Dose Admin Albuterol/Ipratropium 3 ml 05/18/17 22:37 05/18/17 22:55 Duoneb 0.5-3 Mg/3 Ml Neb IH 05/18/17 22:38 3 ml STAT ONE Administration Albuterol/Ipratropium Confirm 05/18/17 22:46 Duoneb 0.5-3 Mg/3 Ml Neb Administered 05/18/17 22:47 Dose 3 ml IH .STK-MED ONE Sodium Chloride 1,000 mls @ 999 mls/hr 05/18/17 22:37 05/18/17 23:01 Sodium Chloride 0.9% 1000 Ml IV 05/18/17 23:37 999 mls/hr .Q1H1M STA Administration Sodium Chloride Confirm 05/18/17 22:58 Sodium Chloride 0.9% 1000 Ml Administered 05/18/17 22:59 Dose 1,000 mls @ ud .ROUTE .STK-MED ONE Methylprednisolone Sodium Succinate 125 mg 05/18/17 22:37 05/18/17 23:01 Solu-Medrol 125 Mg IV 05/18/17 22:38 125 mg STAT ONE Administration Methylprednisolone Sodium Succinate Confirm 05/18/17 22:58 Solu-Medrol 125 Mg Administered 05/18/17 22:59 Dose 125 mg .ROUTE .STK-MED ONE Lab/Rad Data: Laboratory Result Diagrams 05/18/17 22:59 Laboratory Results 05/18/17 05/18/17 05/18/17 Range/Units 22:59 22:59 22:59 WBC 9.2 (4.0-10.5) K/mm3 RBC 4.72 (4.1-5.4) M/mm3 Hgb 14.5 (12.0-16.0) gm/dl Hct 42.4 (35-47) % MCV 89.8 (78-100) fl MCH 30.7 (26-32) pg MCHC 34.2 (32-36) g/dl RDW 13.9 (11.5-14.0) % Plt Count 227 (150-450) K/mm3 MPV 9.9 H (6-9.5) fl Gran % 61.0 (36.0-66.0) % Lymphocytes % 27.6 (24.0-44.0) % Monocytes % 6.1 (0.0-12.0) % Eosinophils % 4.9 (0.00-5.0) % Basophils % 0.4 (0.0-0.4) % Basophils # 0.04 (0-0.4) Serum , Qual (Negative) Influenza Type A Ag NEGATIVE (NEGATIVE) Influenza Type B Ag NEGATIVE (NEGATIVE) RSV (PCR) NEGATIVE (Negative) Streptococcus Screen NEGATIVE (Negative) 05/18/17 Range/Units 22:45 WBC (4.0-10.5) K/mm3 RBC (4.1-5.4) M/mm3 Hgb (12.0-16.0) gm/dl Hct (35-47) % MCV (78-100) fl MCH (26-32) pg MCHC (32-36) g/dl RDW (11.5-14.0) % Plt Count (150-450) K/mm3 MPV (6-9.5) fl Gran % (36.0-66.0) % Lymphocytes % (24.0-44.0) % Monocytes % (0.0-12.0) % Eosinophils % (0.00-5.0) % Basophils % (0.0-0.4) % Basophils # (0-0.4) Serum , Qual NEGATIVE (Negative) Influenza Type A Ag (NEGATIVE) Influenza Type B Ag (NEGATIVE) RSV (PCR) (Negative) Streptococcus Screen (Negative) - Progress Progress: improved, re-examined Air Movement: good Progress Note: 05/19/17 00:40 symptoms resolved in ER after treatment. Blood Culture(s) Obtained: No Antibiotics given: No Counseled pt/family regarding: lab results, diagnosis, need for follow-up, rad results - Departure Time of Disposition: 00:40 Departure Disposition: Home Clinical Impression: Asthma Condition: Good Critical Care Time: No Instructions: Asthma -- Adult Additional Instructions: see saturday for management of asthma and return meantime if symptoms recur or fever; Prescriptions: Albuterol Common Canister [Proventil Common Canister] 2 puff IH TID PRN PRN #1 puff PRN Reason: Shortness Of Breath/Wheezing Methylprednisolone Packet [Medrol Dosepack] 4 mg PO UD #1 packet
[2017-05-18] MEDS ORDERED: solu-MEDROL 125 MG ONE (22:58)
[2017-05-18] MEDS ORDERED: Sodium Chloride 0.9% 1000 ML 1,000 ML ONE (22:58)
[2017-05-18 23:04] LABS: BASOPHIL % 0.4 % (0.0-0.4); Eosinophil % 4.9 % (0.00-5.0); Lymphocytes % 27.6 % (24.0-44.0); Mean Cell Volume 89.8 fl (78-100); Mean Corpuscular Hemoglobin 30.7 pg (26-32); Mean Platelet Volume 9.9 fl (6-9.5); Monocytes % 6.1 % (0.0-12.0); Platelet Count 227 K/mm3 (150-450); Red Blood Count 4.72 M/mm3 (4.1-5.4); Red Cell Distribution Width 13.9 % (11.5-14.0); White Blood Count 9.2 K/mm3 (4.0-10.5)
[2017-05-19] MEDS ORDERED: Medrol Dosepack PO SCH (00:45)
[2017-05-19 00:46] VITALS: BP 111/63; PULSE 72; O2SAT 96
--- NOTE | 2017-05-19 10:03 | XRAY ---
Indication: Productive cough. Comparison: May 05, 2017. PA/lateral chest again demonstrates normal heart, lungs, and bony thorax.
== END 2017-05-19 00:59 | disposition home or self-care (01) ==
LOC: ED 22:30
DX: J45.909 Unspecified asthma, uncomplicated (principal)
CPT/HCPCS: 36000; 36415; 71020; 84703; 85025; 87070; 87430; 87631; 94640; 96360; 96374; 99284; J2930; A9270-GY

== ENCOUNTER 2017-06-06 01:46 | Emergency (ER) | payer OTHER, SELFPAY ==
[2017-06-06 01:51] VITALS: BP 94/39; O2SAT 97
[2017-06-06] MEDS ORDERED: solu-MEDROL 125 MG IV ONE (02:04)
[2017-06-06] MEDS ORDERED: DUONEB 0.5-3 MG/3 ml Neb IH ONE ×2 (02:04→02:07)
--- NOTE | 2017-06-06 02:06 | ERPHSYRPT ---
- History of Present Illness Time Seen by Provider: 06/06/17 01:59 Source: patient Exam Limitations: no limitations Patient Subjective Stated Complaint: pt states she woke up with sob and wheezing. Triage Nursing Assessment: pt alert and oriented, asnwers questions approp. pt ambulatoryw ith steady gait noted. skin pink warm and dry. respirations nonlabored. inps and exp wheezes throughout. Physician History: The patient is a 27-year-old female with a history of asthma complains of having increasing "asthma attacks" for the past 3 days. She has to get up out of bed and give herself breathing treatments. Tonight she is tired of getting up and given herself a breathing treatment. Timing/Duration: day(s) (3) Activities at Onset: none Severity of Dyspnea-Max: moderate Severity of Dyspnea-Current: mild Possible Cause: frequent episodes Modifying Factors: Improves With: albuterol nebulizer Associated Symptoms: cough, wheezing Allergies/Adverse Reactions: povidone-iodine [From Betadine] Allergy (Mild, Verified 06/06/17 01:58) Blisters soap [From Betadine] Allergy (Mild, Verified 06/06/17 01:58) Blisters sulfamethoxazole [From Bactrim] Allergy (Mild, Verified 06/06/17 01:58) "weird hives" trimethoprim [From Bactrim] Allergy (Mild, Verified 06/06/17 01:58) "weird hives" divalproex sodium [From Depakote] Allergy (Verified 06/06/17 01:58) according to family Home Medications: Flunisolide [Aerospan] 8.9 gm IH BID 06/06/17 [History] Varenicline Tartrate [Chantix] 1 mg PO DAILY 06/06/17 [History] Hx Tetanus, Diphtheria Vaccination/Date Given: Yes Hx Influenza Vaccination/Date Given: No Hx Pneumococcal Vaccination/Date Given: No Immunizations Up to Date: Yes - Review of Systems Constitutional: No Fever, No Chills Eyes: No Symptoms Ears, Nose, & Throat: No Symptoms Respiratory: Dyspnea, Wheezing Cardiac: No Chest Pain, No Edema, No Syncope Abdominal/Gastrointestinal: No Abdominal Pain, No Nausea, No Vomiting, No Diarrhea Genitourinary Symptoms: No Dysuria Musculoskeletal: No Back Pain, No Neck Pain Skin: No Rash Neurological: No Dizziness, No Focal Weakness, No Sensory Changes Psychological: No Symptoms Endocrine: No Symptoms Hematologic/Lymphatic: No Symptoms Immunological/Allergic: No Symptoms All Other Systems: Reviewed and Negative - Past Medical History Pertinent Past Medical History: Yes Neurological History: Migraines ENT History: No Pertinent History Cardiac History: Other Respiratory History: Asthma, Bronchitis, Pneumonia Endocrine Medical History: No Pertinent History Musculoskeletal History: Fractures, Other GI Medical History: No Pertinent History History: No Pertinent History Psycho-Social History: Anxiety, Depression Female Reproductive Disorders: No Pertinent History Other Medical History: PARANOIA, undiagnosed heart valve issue - Past Surgical History Past Surgical History: Yes Neuro Surgical History: No Pertinent History Cardiac: No Pertinent History Respiratory: No Pertinent History Gastrointestinal: Appendectomy Genitourinary: No Pertinent History Musculoskeletal: Other Female Surgical History: Section Other Surgical History: Left elbow repair, right knee repair - Social History Smoking Status: Current every day smoker How long have you smoked: 15 years Exposure to second hand smoke: Yes Drug Use: none Patient Lives Alone: No Significant Family History: no pertinent family hx - Female History Hx Last Menstrual Period: last month Hx Now: No - Nursing Vital Signs Nursing Vital Signs: Initial Vital Signs Temperature 97.8 F Temperature Source Oral Pulse Rate 88 Respiratory Rate 15 Blood Pressure [Right Arm] 94/39 Pain Intensity 2 - Physical Exam General Appearance: no apparent distress, alert Eye Exam: PERRL/EOMI Neck Exam: normal inspection, supple Respiratory Exam: wheezing Cardiovascular/Chest Exam: normal heart sounds, regular rate/rhythm Abdominal/Gastrointestinal Exam: soft, No tenderness, No distention, No mass Rectal Exam: not done Extremity Exam: non-tender, normal range of motion, normal inspection, no calf tenderness, no pedal edema Neurologic Exam: alert, oriented x 3, cooperative, 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, sensation nml, No motor deficits Skin Exam: normal color, warm, No dry SpO2 Interpretation: normal SpO2: 97 Oxygen Delivery: Room Air Ordered Tests: Active Orders 24 hr Category Date Time Status IV Insertion STAT Care 06/06/17 02:04 Active CHEST 2 VIEWS (PA AND LAT) Stat Exams 06/06/17 02:05 Ordered Respiratory Nebulizer STAT RT 06/06/17 02:05 Completed Medication Summary Discontinued Medications Generic Name Dose Route Start Last Admin Trade Name Freq PRN Reason Stop Dose Admin Albuterol/Ipratropium 3 ml 06/06/17 02:04 06/06/17 02:08 Duoneb 0.5-3 Mg/3 Ml Neb IH 06/06/17 02:05 3 ml STAT ONE Administration Albuterol/Ipratropium Confirm 06/06/17 02:07 Duoneb 0.5-3 Mg/3 Ml Neb Administered 06/06/17 02:08 Dose 3 ml IH .STK-MED ONE Methylprednisolone Sodium Succinate 125 mg 06/06/17 02:04 06/06/17 02:27 Solu-Medrol 125 Mg IV 06/06/17 02:05 125 mg STAT ONE Administration Methylprednisolone Sodium Succinate Confirm 06/06/17 02:23 Solu-Medrol 125 Mg Administered 06/06/17 02:24 Dose 125 mg .ROUTE .STK-MED ONE - Progress Progress: improved Air Movement: good Progress Note: 06/06/17 02:35 Patient refuses chest x-ray. Blood Culture(s) Obtained: No Antibiotics given: No Counseled pt/family regarding: diagnosis, need for follow-up - Departure Time of Disposition: 02:35 Departure Disposition: Home Clinical Impression: Asthma Condition: Stable Critical Care Time: No Referrals: CARLENE MENA MD [Primary Care Provider] - Additional Instructions: You have a mild flare up of her asthma. You were given a DuoNeb breathing treatment in the ER improvement. You refused your chest x-ray. You were given Solu-Medrol 125 mg by IM in the ER. Take prednisone 60 mg daily for 5 days. Follow-up in 2 days with your family doctor. Prescriptions: Prednisone 10 mg [Deltasone 10 mg] 60 mg PO DAILY #30 tablet
[2017-06-06 02:13] VITALS: PULSE 88
[2017-06-06] MEDS ORDERED: solu-MEDROL 125 MG ONE (02:23)
== END 2017-06-06 02:55 | disposition home or self-care (01) ==
LOC: ED 01:46
DX: J45.909 Unspecified asthma, uncomplicated (principal)
CPT/HCPCS: 94640; 96372; 99284; J2930; A9270-GY

== ENCOUNTER 2017-06-20 17:21 | Emergency (ER) | payer OTHER ==
[2017-06-20] MEDS ORDERED: NARCAN 1 MG/ML IV PRN (17:29)
[2017-06-20 17:33] LABS: VBG BASE EXCESS -2.3 (-2.0-2.0); VBG CARBOXYHEMOGLOBIN 5.2 % T HGB (0.0-6.9); VBG HEMOGLOBIN 16.5; VBG O2 SATURATION 72.3 (95-100); VBG POTASSIUM 4.3 (3.5-5.1); VBG pH 7.52 (7.32-7.42)
[2017-06-20 17:48] LABS: BASOPHIL % 0.5 % (0.0-0.4); Eosinophil % 4.8 % (0.00-5.0); Granulocytes % 69.7 % (36.0-66.0); Lymphocytes % 20.2 % (24.0-44.0); Mean Cell Volume 89.6 fl (78-100); Mean Corpuscular Hemoglobin 31.1 pg (26-32); Mean Platelet Volume 10.2 fl (6-9.5); Monocytes % 4.8 % (0.0-12.0); Platelet Count 222 K/mm3 (150-450); Red Blood Count 4.83 M/mm3 (4.1-5.4); Red Cell Distribution Width 13.8 % (11.5-14.0); White Blood Count 7.7 K/mm3 (4.0-10.5)
--- NOTE | 2017-06-20 17:50 | ERPHSYRPT ---
- History of Present Illness Time Seen by Provider: 06/20/17 17:29 Source: patient, EMS, old records Exam Limitations: clinical condition (respiratory distress) Patient Subjective Stated Complaint: PT COMES IN BY EMS FOR RESPIRATORY DISTRESS PER EMS PT WAS GIVEN 1 DUONEB,ALBUTEROL,AND 2 MG OF NARCAN IN ROUTE PLACED ON C-PAP. PER EMS PT HAS HX OF ASTHMA. Triage Nursing Assessment: ON ARRIVAL PT ON CPAP PER RT PT LETHARGIC INITIALLY O2 SAT. 97% ON CPAP PT HYPERVENTILATING NO WHEEZES NOTED ON AUSCULTATION Physician History: patietn found down in respiratory distress; gave narcan x 2 mg and duoneb treatment; hx of severe asthma; no recent fever, cough or steroid; no travel or exposures; denies drug abuse Timing/Duration: today Activities at Onset: rest Severity of Dyspnea-Max: severe Severity of Dyspnea-Current: severe Possible Cause: occasional episodes Modifying Factors: Improves With: albuterol inhaler, albuterol nebulizer, oxygen Associated Symptoms: chest pain/discomfort International travel in last 2 weeks: No Allergies/Adverse Reactions: povidone-iodine [From Betadine] Allergy (Mild, Verified 06/06/17 01:58) Blisters soap [From Betadine] Allergy (Mild, Verified 06/06/17 01:58) Blisters sulfamethoxazole [From Bactrim] Allergy (Mild, Verified 06/06/17 01:58) "weird hives" trimethoprim [From Bactrim] Allergy (Mild, Verified 06/06/17 01:58) "weird hives" divalproex sodium [From Depakote] Allergy (Verified 06/06/17 01:58) according to family Home Medications: Flunisolide [Aerospan] 8.9 gm IH BID 06/06/17 [History] Varenicline Tartrate [Chantix] 1 mg PO DAILY 06/06/17 [History] Hx Tetanus, Diphtheria Vaccination/Date Given: Yes Hx Influenza Vaccination/Date Given: No Hx Pneumococcal Vaccination/Date Given: No Immunizations Up to Date: Yes - Review of Systems Constitutional: No Symptoms Eyes: No Symptoms Ears, Nose, & Throat: No Symptoms Respiratory: Wheezing, No Cough, No Cyanosis, No Dyspnea Cardiac: Chest Pain, No Palpitations, No Syncope Abdominal/Gastrointestinal: No Abdominal Pain, No Nausea, No Vomiting, No Diarrhea Genitourinary Symptoms: No Symptoms Musculoskeletal: No Symptoms Skin: No Symptoms Neurological: No Symptoms Psychological: No Symptoms Endocrine: No Symptoms Hematologic/Lymphatic: No Symptoms Immunological/Allergic: No Symptoms - Past Medical History Pertinent Past Medical History: Yes Neurological History: Migraines ENT History: No Pertinent History Cardiac History: Other Respiratory History: Asthma, Bronchitis, Pneumonia Endocrine Medical History: No Pertinent History Musculoskeletal History: Fractures, Other GI Medical History: No Pertinent History History: No Pertinent History Psycho-Social History: Anxiety, Depression Female Reproductive Disorders: No Pertinent History Other Medical History: PARANOIA, undiagnosed heart valve issue - Past Surgical History Past Surgical History: Yes Neuro Surgical History: No Pertinent History Cardiac: No Pertinent History Respiratory: No Pertinent History Gastrointestinal: Appendectomy Genitourinary: No Pertinent History Musculoskeletal: Other Female Surgical History: Section Other Surgical History: Left elbow repair, right knee repair - Social History Smoking Status: Current every day smoker How long have you smoked: 16 YEARS Exposure to second hand smoke: Yes Alcohol Use: Socially Drug Use: none Patient Lives Alone: No Significant Family History: no pertinent family hx - Female History Hx Last Menstrual Period: 1 1/2 MONTHS Hx Now: No - Nursing Vital Signs Nursing Vital Signs: Initial Vital Signs Temperature 97.9 F 06/20/17 17:33 Pulse Rate 84 06/20/17 17:33 Respiratory Rate 30 H 06/20/17 17:33 Blood Pressure 118/77 06/20/17 17:33 O2 Sat by Pulse Oximetry 100 06/20/17 17:33 - Physical Exam General Appearance: severe distress (respiratory on bipap), No alert (lethargic) Eye Exam: PERRL/EOMI, eyes nml inspection Ears, Nose, Throat Exam: hearing grossly normal, normal ENT inspection, normal pharynx Neck Exam: normal inspection, non-tender, supple, full range of motion, No meningismus, No JVD, No subcutaneous emphysema Respiratory Exam: chest tenderness (mild anterior), respiratory distress, airway intact, wheezing, No normal breath sounds, No crackles/rales, No rhonchi , No pleural rub Cardiovascular/Chest Exam: normal heart sounds, regular rate/rhythm, normal peripheral pulses, No murmur, No JVD Abdominal/Gastrointestinal Exam: soft, normal bowel sounds, No tenderness, No distention, No guarding, No rebound, No organomegaly Rectal Exam: deferred Extremity Exam: non-tender, normal range of motion, normal inspection, normal capillary refill, no calf tenderness, no pedal edema Peripheral Pulses Exam: carotid (R): 4+, carotid (L): 4+, femoral (R): 4+, femoral (L): 4+, dorsalis-pedis (R): 3+, dorsalis-pedis (L): 3+ Neurologic Exam: alert (after 30 minutes; not initially), oriented x 3 (not initially ), cooperative (not initially), 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, normal mood/ affect (not initially), sensation nml, agitation (initially), uncooperative ( initially), depressed mood/affect (initially) Skin Exam: normal color, warm, dry, No rash, No petechiae, No cyanosis SpO2 Interpretation: normal, ABG ordered, O2 applied SpO2: 100 Oxygen Delivery: BiPap - Course Nursing assessment & vital signs reviewed: Yes EKG Interpreted by Me: RATE (81), Sinus Rhythm, NORMAL AXIS, NORMAL INTERVALS, NORMAL QRS, NORMAL ST-T Rhythm Strip: Rate (80), Normal Sinus Rhythm - Radiology Exams Chest X-ray Interpretation: Interpreted by me, No Pneumonia, No Pneumothorax, Nml Heart Size, No Infiltrates Ordered Tests: Active Orders 24 hr Category Date Time Status Accucheck STAT Care 06/20/17 17:29 Active Wafer Mounter STAT Care 06/20/17 17:29 Active Catheter-[place] Banuelos STAT Care 06/20/17 17:29 Active EKG-ER Only STAT Care 06/20/17 17:29 Active IV Insertion STAT Care 06/20/17 17:29 Active Pulse Oximetry (ED) STAT Care 06/20/17 17:29 Active Re-Check Vital Signs STAT Care 06/20/17 17:29 Active CHEST 1 VIEW (PORTABLE) Stat Exams 06/20/17 17:30 Taken ACETAMINOPHEN Stat Lab 06/20/17 17:29 Completed ARTERIAL BLOOD GASES Stat Lab 06/20/17 17:32 Stop Req CBC W DIFF Stat Lab 06/20/17 17:29 Completed CMP Stat Lab 06/20/17 17:29 Completed CULTURE,URINE Stat Lab 06/20/17 18:31 Received ETHYL ALCOHOL Stat Lab 06/20/17 17:29 Completed Glucose,Critical Care Stat Lab 06/20/17 17:29 Completed HCG, Quantitative (Inhouse) Stat Lab 06/20/17 17:32 Completed SALICYLATE Stat Lab 06/20/17 17:29 Completed UA W/ MICROSCOPIC Stat Lab 06/20/17 18:31 Completed Urine Triage Profile Stat Lab 06/20/17 18:31 Completed VBG [VENOUS BLOOD GAS] Stat Lab 06/20/17 17:32 Completed Medication Summary Generic Name Dose Route Start Last Admin Trade Name Freq PRN Reason Stop Dose Admin Naloxone HCl 1 mg 06/20/17 17:29 Narcan 1 Mg/Ml IV 07/20/17 17:28 STAT PRN SHORTNESS OF BREATH Discontinued Medications Generic Name Dose Route Start Last Admin Trade Name Freq PRN Reason Stop Dose Admin Famotidine 20 mg 06/20/17 17:52 06/20/17 18:11 Pepcid 20 Mg Vial IV 06/20/17 17:53 20 mg STAT ONE Administration Famotidine Confirm 06/20/17 18:04 Pepcid 20 Mg Vial Administered 06/20/17 18:05 Dose 20 mg IV .STK-MED ONE Methylprednisolone Sodium Succinate 125 mg 06/20/17 17:52 06/20/17 18:09 Solu-Medrol 125 Mg IV 06/20/17 17:53 125 mg STAT ONE Administration Methylprednisolone Sodium Succinate Confirm 06/20/17 18:05 Solu-Medrol 125 Mg Administered 06/20/17 18:06 Dose 125 mg .ROUTE .STK-MED ONE Lab/Rad Data: Laboratory Result Diagrams 06/20/17 17:29 06/20/17 17:29 Laboratory Results 06/20/17 06/20/17 06/20/17 Range/Units 18:31 18:31 17:32 WBC (4.0-10.5) K/mm3 RBC (4.1-5.4) M/mm3 Hgb (12.0-16.0) gm/dl Hct (35-47) % MCV (78-100) fl MCH (26-32) pg MCHC (32-36) g/dl RDW (11.5-14.0) % Plt Count (150-450) K/mm3 MPV (6-9.5) fl Gran % (36.0-66.0) % Lymphocytes % (24.0-44.0) % Monocytes % (0.0-12.0) % Eosinophils % (0.00-5.0) % Basophils % (0.0-0.4) % Basophils # (0-0.4) VBG pH (7.32-7.42) VBG pCO2 at Pat Temp (42-55) mm/Hg VBG pO2 at Pat Temp (25-40) mm/Hg VBG HCO3 (22-28) meq/L VBG O2 Sat (Jill) (95-100) VBG Base Excess (-2.0-2.0) VBG Hemoglobin VBG Carboxyhemoglobin (0.0-6.9) % T HGB POC Potassium (3.5-5.1) Glucose (70-110) Sodium (136-145) mEq/L Potassium (3.5-5.1) mEq/L Chloride (98-107) mEq/L Carbon Dioxide (21-32) mEq/L Anion Gap (5-15) MEQ/L BUN (9-20) mg/dL Creatinine (0.55-1.30) mg/dl Estimated GFR ML/MIN Calcium (8.5-10.1) mg/dL Total Bilirubin (0.2-1.0) mg/dL AST (15-37) U/L ALT (12-78) U/L Alkaline Phosphatase (46-116) U/L Serum Total Protein (6.4-8.2) gm/dL Albumin (3.4-5.0) g/dL Beta HCG, Quant < 1.0 (0-6) IU/L Ur Collection Type CLEAN CATCH Urine Color YELLOW (YELLOW) Urine Appearance CLEAR (CLEAR) Urine pH 7.0 (5-6) Ur Specific [place] 1.025 (1.005-1.025) Urine Protein NEGATIVE (Negative) Urine Ketones NEGATIVE (NEGATIVE) Urine Blood 50 (0-5) Jeff/ul Urine Nitrite NEGATIVE (NEGATIVE) Urine Bilirubin NEGATIVE (NEGATIVE) Urine Urobilinogen NORMAL (0-1) mg/dL Ur Leukocyte Esterase TRACE (NEGATIVE) Urine Microscopic RBC 0-2 (0-2) /HPF Urine Microscopic WBC 0-2 (0-5) /HPF Ur Epithelial Cells MODERATE (FEW) /HPF Urine Bacteria FEW (NEGATIVE) /HPF Urine Mucus MODERATE (NEGATIVE) /HPF Urine Glucose NEGATIVE (NEGATIVE) mg/dL Salicylates (2.8-20.0) mg/dl Urine Opiates Level NEG. (NEGATIVE) Ur Methadone NEG. (NEGATIVE) Acetaminophen (10-30) ug/ml Urine Barbiturates NEG. (NEGATIVE) Ur Phencyclidine (PCP) NEG. (NEGATIVE) Urine Amphetamine NEG. (NEGATIVE) U Benzodiazepine Level POS. (NEGATIVE) Urine Cocaine NEG. (NEGATIVE) Urine Marijuana (THC) POS. (NEGATIVE) Ethyl Alcohol (0.00-0.01) % Specimen Received 06/20/17 1830 06/20/17 06/20/17 06/20/17 Range/Units 17:32 17:29 17:29 WBC (4.0-10.5) K/mm3 RBC (4.1-5.4) M/mm3 Hgb (12.0-16.0) gm/dl Hct (35-47) % MCV (78-100) fl MCH (26-32) pg MCHC (32-36) g/dl RDW (11.5-14.0) % Plt Count (150-450) K/mm3 MPV (6-9.5) fl Gran % (36.0-66.0) % Lymphocytes % (24.0-44.0) % Monocytes % (0.0-12.0) % Eosinophils % (0.00-5.0) % Basophils % (0.0-0.4) % Basophils # (0-0.4) VBG pH 7.52 H (7.32-7.42) VBG pCO2 at Pat Temp 22 L* (42-55) mm/Hg VBG pO2 at Pat Temp 28 (25-40) mm/Hg VBG HCO3 18.0 L (22-28) meq/L VBG O2 Sat (Jill) 72.3 L (95-100) VBG Base Excess -2.3 L (-2.0-2.0) VBG Hemoglobin 16.5 VBG Carboxyhemoglobin 5.2 (0.0-6.9) % T HGB POC Potassium 4.3 (3.5-5.1) Glucose 86 80 (70-110) Sodium 138 (136-145) mEq/L Potassium 3.3 L (3.5-5.1) mEq/L Chloride 103 (98-107) mEq/L Carbon Dioxide 20.5 L (21-32) mEq/L Anion Gap 17.4 H (5-15) MEQ/L BUN 11 (9-20) mg/dL Creatinine 0.90 (0.55-1.30) mg/dl Estimated GFR > 60 ML/MIN Calcium 9.4 (8.5-10.1) mg/dL Total Bilirubin 0.60 (0.2-1.0) mg/dL AST 15 (15-37) U/L ALT 20 (12-78) U/L Alkaline Phosphatase 66 (46-116) U/L Serum Total Protein 8.0 (6.4-8.2) gm/dL Albumin 4.4 (3.4-5.0) g/dL Beta HCG, Quant (0-6) IU/L Ur Collection Type Urine Color (YELLOW) Urine Appearance (CLEAR) Urine pH (5-6) Ur Specific [place] (1.005-1.025) Urine Protein (Negative) Urine Ketones (NEGATIVE) Urine Blood (0-5) Jeff/ul Urine Nitrite (NEGATIVE) Urine Bilirubin (NEGATIVE) Urine Urobilinogen (0-1) mg/dL Ur Leukocyte Esterase (NEGATIVE) Urine Microscopic RBC (0-2) /HPF Urine Microscopic WBC (0-5) /HPF Ur Epithelial Cells (FEW) /HPF Urine Bacteria (NEGATIVE) /HPF Urine Mucus (NEGATIVE) /HPF Urine Glucose (NEGATIVE) mg/dL Salicylates < 2.8 L (2.8-20.0) mg/dl Urine Opiates Level (NEGATIVE) Ur Methadone (NEGATIVE) Acetaminophen < 2.0 L (10-30) ug/ml Urine Barbiturates (NEGATIVE) Ur Phencyclidine (PCP) (NEGATIVE) Urine Amphetamine (NEGATIVE) U Benzodiazepine Level (NEGATIVE) Urine Cocaine (NEGATIVE) Urine Marijuana (THC) (NEGATIVE) Ethyl Alcohol < 0.010 (0.00-0.01) % Specimen Received 06/20/17 Range/Units 17:29 WBC 7.7 (4.0-10.5) K/mm3 RBC 4.83 (4.1-5.4) M/mm3 Hgb 15.0 (12.0-16.0) gm/dl Hct 43.3 (35-47) % MCV 89.6 (78-100) fl MCH 31.1 (26-32) pg MCHC 34.6 (32-36) g/dl RDW 13.8 (11.5-14.0) % Plt Count 222 (150-450) K/mm3 MPV 10.2 H (6-9.5) fl Gran % 69.7 H (36.0-66.0) % Lymphocytes % 20.2 L (24.0-44.0) % Monocytes % 4.8 (0.0-12.0) % Eosinophils % 4.8 (0.00-5.0) % Basophils % 0.5 (0.0-0.4) % Basophils # 0.04 (0-0.4) VBG pH (7.32-7.42) VBG pCO2 at Pat Temp (42-55) mm/Hg VBG pO2 at Pat Temp (25-40) mm/Hg VBG HCO3 (22-28) meq/L VBG O2 Sat (Jill) (95-100) VBG Base Excess (-2.0-2.0) VBG Hemoglobin VBG Carboxyhemoglobin (0.0-6.9) % T HGB POC Potassium (3.5-5.1) Glucose (70-110) Sodium (136-145) mEq/L Potassium (3.5-5.1) mEq/L Chloride (98-107) mEq/L Carbon Dioxide (21-32) mEq/L Anion Gap (5-15) MEQ/L BUN (9-20) mg/dL Creatinine (0.55-1.30) mg/dl Estimated GFR ML/MIN Calcium (8.5-10.1) mg/dL Total Bilirubin (0.2-1.0) mg/dL AST (15-37) U/L ALT (12-78) U/L Alkaline Phosphatase (46-116) U/L Serum Total Protein (6.4-8.2) gm/dL Albumin (3.4-5.0) g/dL Beta HCG, Quant (0-6) IU/L Ur Collection Type Urine Color (YELLOW) Urine Appearance (CLEAR) Urine pH (5-6) Ur Specific [place] (1.005-1.025) Urine Protein (Negative) Urine Ketones (NEGATIVE) Urine Blood (0-5) Jeff/ul Urine Nitrite (NEGATIVE) Urine Bilirubin (NEGATIVE) Urine Urobilinogen (0-1) mg/dL Ur Leukocyte Esterase (NEGATIVE) Urine Microscopic RBC (0-2) /HPF Urine Microscopic WBC (0-5) /HPF Ur Epithelial Cells (FEW) /HPF Urine Bacteria (NEGATIVE) /HPF Urine Mucus (NEGATIVE) /HPF Urine Glucose (NEGATIVE) mg/dL Salicylates (2.8-20.0) mg/dl Urine Opiates Level (NEGATIVE) Ur Methadone (NEGATIVE) Acetaminophen (10-30) ug/ml Urine Barbiturates (NEGATIVE) Ur Phencyclidine (PCP) (NEGATIVE) Urine Amphetamine (NEGATIVE) U Benzodiazepine Level (NEGATIVE) Urine Cocaine (NEGATIVE) Urine Marijuana (THC) (NEGATIVE) Ethyl Alcohol (0.00-0.01) % Specimen Received reviewed - Progress Progress: improved (aftere meds), re-examined (after meds and treatment) Air Movement: fair Progress Note: 06/20/17 17:51 initially uncooperative and depressed MS; improved rapidly over time; now alert and ox3 and cooperative and gives a good history; will monitor and check and give steroids 06/20/17 18:26 patietn continues to improve over time; wheezing resolved; resp distress resolved; cooperative and good vs and pusle ox on room air; ekg and cxr wnl; cbc wnl; bs 80;; will monitor and recheck 06/20/17 18:55 patient continues to improve; ; HCG neg; low K= 3.3 otherwise all neg; tox screen pending; wioll continue to monitor and recheck 06/20/17 19:14 recheck and doing well; tox screen neg for opiates; ua clear; discussed findings and treatment plan; d/c instructions given Blood Culture(s) Obtained: No Antibiotics given: No Counseled pt/family regarding: lab results, diagnosis, need for follow-up, rad results - Departure Time of Disposition: 19:15 Departure Disposition: Home Clinical Impression: Asthma with exacerbation Condition: Stable Critical Care Time: Yes Critical Care Time(excluding separately billable procedures): 30-74 minutes Referrals: CARLENE MENA MD [Primary Care Provider] - Instructions: Asthma -- Adult Additional Instructions: use nebulyzer as needed; encourage fluids; stop smoking Follow-up with family doctor as directed. Call for appointment. Return if any problems. If you smoke please stop. Call or follow up with your family doctor for assistance if you need it to stop. Please wear your seatbelt when driving. Have a nice day. Thank you for allowing us to participate in your care today. :o) Dr Gaudencio Adams Prescriptions: Methylprednisolone Packet [Medrol Dosepack] 4 mg PO UD #30 packet Nizatidine [Axid] 150 mg PO BID #14 capsule
[2017-06-20] MEDS ORDERED: solu-MEDROL 125 MG IV ONE (17:52)
[2017-06-20] MEDS ORDERED: Pepcid 20 MG VIAL IV ONE ×2 (17:52→18:04)
[2017-06-20] MEDS ORDERED: NARCAN 1 MG/ML ONE (18:05)
[2017-06-20] MEDS ORDERED: solu-MEDROL 125 MG ONE (18:05)
[2017-06-20 18:15] LABS: ALBUMIN 4.4 g/dL (3.4-5.0); ALKALINE PHOSPHATASE 66 U/L (46-116); ANION GAP 17.4 MEQ/L (5-15); BLOOD UREA NITROGEN 11 mg/dL (9-20); CHLORIDE 103 mEq/L (98-107); Carbon Dioxide 20.5 mEq/L (21-32); ETHYL ALCOHOL < 0.010 % (0.00-0.01); Glucose 86 MG/DL (70-110); Potassium 3.3 mEq/L (3.5-5.1); SGOT/AST 15 U/L (15-37); SGPT/ALT 20 U/L (12-78); SODIUM 138 mEq/L (136-145)
[2017-06-20 18:48] LABS: ACETAMINOPHEN < 2.0 ug/ml (10-30)
[2017-06-20 19:00] LABS: ADD URINE CULTURE? YES (NO); Bacteria FEW /HPF (NEGATIVE); Bilirubin NEGATIVE (NEGATIVE); Blood 50 Ery/ul (0-5); COMPLETE URINE MICROSCOPIC? YES; Collection Type CLEAN CATCH; Epithelial Cells MODERATE /HPF (FEW); Glucose NEGATIVE (NEGATIVE); Leukocyte Esterase TRACE (NEGATIVE); Mucus MODERATE /HPF (NEGATIVE); WBC 0-2 /HPF (0-5)
[2017-06-20 19:44] VITALS: BP 130/76; PULSE 88; O2SAT 99
[2017-06-20 23:21] LABS: ALLEN TEST OK? X
--- NOTE | 2017-06-21 08:53 | XRAY ---
Indication: Short of breath. Comparison: May 18, 2017. Portable chest again demonstrates normal heart, lungs, and bony thorax.
== END 2017-06-20 19:44 | disposition home or self-care (01) ==
LOC: ED 17:21
DX: J45.909 Unspecified asthma, uncomplicated (principal); R07.9 Chest pain, unspecified
CPT/HCPCS: 36000; 36415; 36600; 51702; 71010; 80053; 80307; 81000; 82375; 82803; 82805; 82947; 82962; 84702; 85025; 87086; 93005; 93041; 99291; G0481; J2310; J2930

== ENCOUNTER 2017-06-30 21:32 | Emergency (ER) | payer OTHER ==
[2017-06-30] MEDS ORDERED: DUONEB 0.5-3 MG/3 ml Neb IH ONE ×2 (21:47→21:58)
[2017-06-30] MEDS ORDERED: solu-MEDROL 125 MG IM ONE (21:47)
[2017-06-30] MEDS ORDERED: solu-MEDROL 125 MG ONE (21:50)
--- NOTE | 2017-06-30 21:51 | ERPHSYRPT ---
- History of Present Illness Time Seen by Provider: 06/30/17 21:46 Source: patient Exam Limitations: no limitations Patient Subjective Stated Complaint: Pt sts difficulty breathing at home, sts that she has asthma and has had to use an increasing amount of her inhalers and nebulizer. 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 Triage Nursing Assessment: Pt alert, oriented, answers all questions appropriately. Steady gait to room. Dry cough noted. Lung sounds CTA bilat. Pt speaking in full sentences. Physician History: The patient is a 27-year-old female with a history of asthma comes in [facility] complaining of shortness of breath for at least a week. She has been seen in this ER previously and was given a prednisone Dosepak but did not fill it because she could not afford it. Today she took 3 nebulizer treatments but still says she cannot breathe well. She also has a cough. Her past medical history is significant for asthma, depression, anxiety. Timing/Duration: week(s) (1) Activities at Onset: none Severity of Dyspnea-Max: moderate Severity of Dyspnea-Current: mild Possible Cause: frequent episodes Modifying Factors: Improves With: albuterol inhaler, albuterol nebulizer, coughing, exertion Associated Symptoms: cough, wheezing Allergies/Adverse Reactions: povidone-iodine [From Betadine] Allergy (Mild, Verified 06/30/17 21:39) Blisters soap [From Betadine] Allergy (Mild, Verified 06/30/17 21:39) Blisters sulfamethoxazole [From Bactrim] Allergy (Mild, Verified 06/30/17 21:39) "weird hives" trimethoprim [From Bactrim] Allergy (Mild, Verified 06/30/17 21:39) "weird hives" divalproex sodium [From Depakote] Allergy (Verified 06/30/17 21:39) according to family Home Medications: Flunisolide [Aerospan] 8.9 gm IH BID 06/06/17 [History] Varenicline Tartrate [Chantix] 1 mg PO DAILY 06/06/17 [History] Hx Tetanus, Diphtheria Vaccination/Date Given: Yes Hx Influenza Vaccination/Date Given: No Hx Pneumococcal Vaccination/Date Given: No Immunizations Up to Date: Yes - Review of Systems Constitutional: No Fever, No Chills Eyes: No Symptoms Ears, Nose, & Throat: No Symptoms Respiratory: Cough, Dyspnea, Dyspnea on Exertion (DUBON), Wheezing Cardiac: No Chest Pain, No Edema, No Syncope Abdominal/Gastrointestinal: No Abdominal Pain, No Nausea, No Vomiting, No Diarrhea Genitourinary Symptoms: No Dysuria Musculoskeletal: No Back Pain, No Neck Pain Skin: No Rash Neurological: No Dizziness, No Focal Weakness, No Sensory Changes Psychological: No Symptoms Endocrine: No Symptoms Hematologic/Lymphatic: No Symptoms Immunological/Allergic: No Symptoms All Other Systems: Reviewed and Negative - Past Medical History Pertinent Past Medical History: Yes Neurological History: Migraines ENT History: No Pertinent History Cardiac History: Other Respiratory History: Asthma, Bronchitis, Pneumonia Endocrine Medical History: No Pertinent History Musculoskeletal History: Fractures, Other GI Medical History: No Pertinent History History: No Pertinent History Psycho-Social History: Anxiety, Depression Female Reproductive Disorders: No Pertinent History Other Medical History: PARANOIA, undiagnosed heart valve issue - Past Surgical History Past Surgical History: Yes Neuro Surgical History: No Pertinent History Cardiac: No Pertinent History Respiratory: No Pertinent History Gastrointestinal: Appendectomy Genitourinary: No Pertinent History Musculoskeletal: Other Female Surgical History: Section Other Surgical History: Left elbow repair, right knee repair - Social History Smoking Status: Current every day smoker How long have you smoked: 16 Exposure to second hand smoke: No Alcohol Use: Socially Drug Use: none Patient Lives Alone: No Significant Family History: no pertinent family hx - Female History Hx Last Menstrual Period: 06/25/17 Hx Now: No - Nursing Vital Signs Nursing Vital Signs: Initial Vital Signs Temperature 98 F 06/30/17 21:33 Pulse Rate 106 H 06/30/17 21:33 Respiratory Rate 20 06/30/17 21:33 Blood Pressure 102/77 06/30/17 21:33 O2 Sat by Pulse Oximetry 94 L 06/30/17 21:33 Pain Scale Pain Intensity 1 - Physical Exam General Appearance: mild distress Eye Exam: PERRL/EOMI Neck Exam: normal inspection, supple Respiratory Exam: normal breath sounds, No diminished breath sounds, No wheezing Cardiovascular/Chest Exam: tachycardia Abdominal/Gastrointestinal Exam: soft, No tenderness, No distention, No mass Rectal Exam: deferred Extremity Exam: non-tender, normal range of motion, normal inspection, no calf tenderness, no pedal edema Neurologic Exam: alert, oriented x 3, cooperative, data scientist II-XII nml as tested, sensation nml, No motor deficits Skin Exam: normal color, warm, No dry SpO2 Interpretation: normal SpO2: 94 Oxygen Delivery: Room Air - Radiology Exams Chest X-ray Interpretation: Interpreted by me, Negative Ordered Tests: Active Orders 24 hr Category Date Time Status CHEST 2 VIEWS (PA AND LAT) Stat Exams 06/30/17 21:47 Taken Respiratory Nebulizer STAT RT 06/30/17 21:48 Completed Medication Summary Generic Name Dose Route Start Last Admin Trade Name Freq PRN Reason Stop Dose Admin Albuterol Sulfate 2.5 mg 06/30/17 22:26 Proventil 2.5 Mg/3 Ml Neb IH 07/01/17 22:27 Q6H PRN PRN SHORTNESS OF BREATH/WHEEZING Discontinued Medications Generic Name Dose Route Start Last Admin Trade Name Freq PRN Reason Stop Dose Admin Albuterol/Ipratropium 3 ml 06/30/17 21:47 06/30/17 21:59 Duoneb 0.5-3 Mg/3 Ml Neb IH 06/30/17 21:48 3 ml STAT ONE Administration Albuterol/Ipratropium Confirm 06/30/17 21:58 Duoneb 0.5-3 Mg/3 Ml Neb Administered 06/30/17 21:59 Dose 3 ml IH .STK-MED ONE Methylprednisolone Sodium Succinate 125 mg 06/30/17 21:47 06/30/17 21:51 Solu-Medrol 125 Mg IM 06/30/17 21:48 125 mg STAT ONE Administration Methylprednisolone Sodium Succinate Confirm 06/30/17 21:50 Solu-Medrol 125 Mg Administered 06/30/17 21:51 Dose 125 mg .ROUTE .STK-MED ONE - Progress Progress: improved Air Movement: good Blood Culture(s) Obtained: No Antibiotics given: No Counseled pt/family regarding: diagnosis, need for follow-up, rad results - Departure Time of Disposition: 22:17 Departure Disposition: Home Clinical Impression: Asthma Condition: Stable Critical Care Time: No Referrals: CARLENE MENA MD [Primary Care Provider] - Additional Instructions: You had an asthma attack. You were given a duo neb treatment and solumedrol 125 mg IM in the ER. Take prednisone 60 mg daily for 5 days. Follow up with Dr Mena tomorrow. Prescriptions: Prednisone 10 mg [Deltasone 10 mg] 60 mg PO DAILY #30 tablet
[2017-06-30] MEDS ORDERED: PROVENTIL 2.5 MG/3 ML NEB IH PRN (22:26)
[2017-06-30] MEDS ORDERED: PROVENTIL 2.5 MG/3 ML NEB IH ONE (22:39)
[2017-06-30 22:47] VITALS: BP 112/60; PULSE 87; O2SAT 97
--- NOTE | 2017-07-01 08:39 | XRAY ---
Indication: Short of breath, cough, and congestion. Asthma. Comparison: June 20, 2017. Portable chest again demonstrates normal heart, lungs, and bony thorax.
== END 2017-06-30 22:47 | disposition home or self-care (01) ==
LOC: ED 21:32
DX: J45.909 Unspecified asthma, uncomplicated (principal); R05 Cough; R06.00 Dyspnea, unspecified; R06.2 Wheezing
CPT/HCPCS: 71020; 94640; 96372; 99284; J2930; A9270-GY

== ENCOUNTER 2017-08-09 01:53 | Emergency (ER) | payer OTHER ==
[2017-08-09] MEDS ORDERED: DELTASONE 20 MG PO ONE (02:08)
[2017-08-09] MEDS ORDERED: Vistaril 50 MG/ML IM ONE ×2 (02:08→02:14)
[2017-08-09] MEDS ORDERED: DUONEB 0.5-3 MG/3 ml Neb IH ONE ×2 (02:08→02:12)
[2017-08-09] MEDS ORDERED: DELTASONE 20 MG ONE (02:15)
--- NOTE | 2017-08-09 02:15 | ERPHSYRPT ---
- History of Present Illness Time Seen by Provider: 08/09/17 02:02 Source: patient Patient Subjective Stated Complaint: pt has been coughing for days and has a tingling pain in her right scapula for 3 weeks -no fever states she stopped smoking but started again -co being anxious because she is out of zoloft Triage Nursing Assessment: pt is awake and alert and able to answer questions with occas dry cough Physician History: CC: breathing trouble Hx: 27 y/o patient of Dr Mena with hx of smoking and asthma. She is using her neb and MDI. Had stopped smoking with chantix but now restarted smoking. She is off her zoloft for anxiety. Trying to get with LMP last month. She has increased cough and wheezing so came to ER. No fever or chills. Some shoulder blade pain. Timing/Duration: today Severity of Dyspnea-Max: moderate Severity of Dyspnea-Current: moderate Allergies/Adverse Reactions: povidone-iodine [From Betadine] Allergy (Mild, Verified 08/09/17 02:10) Blisters soap [From Betadine] Allergy (Mild, Verified 08/09/17 02:10) Blisters sulfamethoxazole [From Bactrim] Allergy (Mild, Verified 08/09/17 02:10) "weird hives" trimethoprim [From Bactrim] Allergy (Mild, Verified 08/09/17 02:10) "weird hives" divalproex sodium [From Depakote] Allergy (Verified 08/09/17 02:10) according to family Home Medications: Albuterol 8 gm Mdi Hfa [Ventolin Hfa MDI] 1 puff DAILY 08/09/17 [History] Hx Tetanus, Diphtheria Vaccination/Date Given: Yes Hx Influenza Vaccination/Date Given: No Hx Pneumococcal Vaccination/Date Given: No - Review of Systems Constitutional: Malaise, No Fever, No Chills Eyes: No Symptoms Ears, Nose, & Throat: No Symptoms, No Throat Pain Respiratory: Cough, Wheezing Cardiac: No Chest Pain Abdominal/Gastrointestinal: No Abdominal Pain Skin: No Rash Neurological: No Focal Weakness, No Parasthesia All Other Systems: Reviewed and Negative - Past Medical History Pertinent Past Medical History: Yes Neurological History: Migraines ENT History: No Pertinent History Cardiac History: Other Respiratory History: Asthma, Bronchitis, Pneumonia Endocrine Medical History: No Pertinent History Musculoskeletal History: Fractures, Other GI Medical History: No Pertinent History History: No Pertinent History Psycho-Social History: Anxiety, Depression Female Reproductive Disorders: No Pertinent History Other Medical History: Hx anxiety - Past Surgical History Past Surgical History: Yes Neuro Surgical History: No Pertinent History Cardiac: No Pertinent History Respiratory: No Pertinent History Gastrointestinal: Appendectomy Genitourinary: No Pertinent History Musculoskeletal: Other Female Surgical History: Section Other Surgical History: Left elbow repair, right knee repair - Social History Smoking Status: Current every day smoker Exposure to second hand smoke: No Alcohol Use: Socially Drug Use: none Patient Lives Alone: No Significant Family History: no pertinent family hx - Female History Hx Last Menstrual Period: 07/20 Hx Now: No - Nursing Vital Signs Nursing Vital Signs: Initial Vital Signs Respiratory Rate 24 08/09/17 02:07 O2 Sat by Pulse Oximetry 97 08/09/17 02:07 Pain Scale Pain Intensity 4 - Physical Exam General Appearance: alert Eye Exam: PERRL/EOMI Neck Exam: normal inspection, non-tender, supple Respiratory Exam: wheezing (with deep cough) Cardiovascular/Chest Exam: regular rate/rhythm Abdominal/Gastrointestinal Exam: soft, No tenderness, No distention Neurologic Exam: alert, oriented x 3, cooperative, sensation nml, No motor deficits Skin Exam: warm, dry, No rash SpO2 Interpretation: normal SpO2: 97 Oxygen Delivery: Room Air - Course Nursing assessment & vital signs reviewed: Yes Ordered Tests: Active Orders 24 hr Category Date Time Status Clean Catch Urine Specimen STAT Care 08/09/17 02:07 Active HCG,QUALITATIVE URINE Stat Lab 08/09/17 02:07 Completed UA W/RFX UR CULTURE Stat Lab 08/09/17 02:07 Completed Urine Triage Profile Stat Lab 08/09/17 02:07 Completed Respiratory Nebulizer STAT RT 08/09/17 02:08 Completed Medication Summary Discontinued Medications Generic Name Dose Route Start Last Admin Trade Name Freq PRN Reason Stop Dose Admin Albuterol/Ipratropium 3 ml 08/09/17 02:08 08/09/17 02:13 Duoneb 0.5-3 Mg/3 Ml Neb IH 08/09/17 02:09 3 ml STAT ONE Administration Albuterol/Ipratropium Confirm 08/09/17 02:12 Duoneb 0.5-3 Mg/3 Ml Neb Administered 08/09/17 02:13 Dose 3 ml IH .STK-MED ONE Hydroxyzine HCl 50 mg 08/09/17 02:08 08/09/17 02:15 Vistaril 50 Mg/Ml IM 08/09/17 02:09 50 mg STAT ONE Administration Hydroxyzine HCl Confirm 08/09/17 02:14 Vistaril 50 Mg/Ml Administered 08/09/17 02:15 Dose 50 mg IM .STK-MED ONE Prednisone 60 mg 08/09/17 02:08 08/09/17 02:15 Deltasone 20 Mg PO 08/09/17 02:09 60 mg STAT ONE Administration Prednisone Confirm 08/09/17 02:15 Deltasone 20 Mg Administered 08/09/17 02:16 Dose 60 mg .ROUTE .STK-MED ONE Lab/Rad Data: Laboratory Results 08/09/17 08/09/17 08/09/17 Range/Units 02:07 02:07 02:07 Ur Collection Type CCMS Urine Color YELLOW (YELLOW) Urine Appearance CLEAR (CLEAR) Urine pH 5.0 (5-6) Ur Specific [place] 1.030 (1.005-1.025) Urine Protein NEGATIVE (Negative) Urine Ketones NEGATIVE (NEGATIVE) Urine Blood NEGATIVE (0-5) Jeff/ul Urine Nitrite NEGATIVE (NEGATIVE) Urine Bilirubin NEGATIVE (NEGATIVE) Urine Urobilinogen NORMAL (0-1) mg/dL Ur Leukocyte Esterase NEGATIVE (NEGATIVE) Urine Glucose NEGATIVE (NEGATIVE) mg/dL Urine HCG, Qual NEGATIVE (Negative) Urine Opiates Level NEG. (NEGATIVE) Ur Methadone NEG. (NEGATIVE) Urine Barbiturates NEG. (NEGATIVE) Ur Phencyclidine (PCP) NEG. (NEGATIVE) Urine Amphetamine NEG. (NEGATIVE) U Benzodiazepine Level NEG. (NEGATIVE) Urine Cocaine NEG. (NEGATIVE) Urine Marijuana (THC) POS. (NEGATIVE) Specimen Received 08-09-17 0215 - Progress Progress Note: 08/09/17 02:12 Advised smoking cessation. Prednisone, vistaril, neb given here. Will release with instr. Counseled pt/family regarding: diagnosis, need for follow-up, smoking cessation - Departure Time of Disposition: 02:42 Departure Disposition: Home Clinical Impression: Smoking Acute asthma exacerbation Qualifiers: Asthma severity: mild persistent Qualified Code(s): J45.31 - Mild persistent asthma with (acute) exacerbation Condition: Stable Critical Care Time: No Referrals: CARLENE MENA MD [Primary Care Provider] - Instructions: Asthma -- Adult, Quit Smoking Additional Instructions: Rx prednisone. Rx hydroxyzine- no driving or operating machinery tonite or while taking. Use your neb or inhaler every 4 hours. Work on quitting smoking. Follow up with Dr Mena. Prescriptions: Hydroxyzine HCl 1 tab PO Q6H PRN PRN #20 tablet PRN Reason: rash,rest Prednisone 20 mg [Deltasone 20 mg] 2 tab PO DAILY #10 tablet
[2017-08-09 02:18] LABS: Collection Type CCMS
[2017-08-09 02:19] LABS: ADD URINE CULTURE? NO (NO); Bilirubin NEGATIVE (NEGATIVE); Blood NEGATIVE Ery/ul (0-5); COMPLETE URINE MICROSCOPIC? NO; Glucose NEGATIVE (NEGATIVE); Leukocyte Esterase NEGATIVE (NEGATIVE)
[2017-08-09 02:50] VITALS: BP 114/68; PULSE 100; O2SAT 98
== END 2017-08-09 02:49 | disposition home or self-care (01) ==
LOC: ED 01:53
DX: J45.31 Mild persistent asthma with (acute) exacerbation (principal)
CPT/HCPCS: 80307; 81002; 84703; 94640; 96372; 99284; J3410; A9270-GY; J7506

== ENCOUNTER 2017-08-21 02:20 | Emergency (ER) | payer OTHER ==
[2017-08-21] MEDS ORDERED: ROCEPHIN 1 Gm-D5w 50 ml Bag** 1 G/50 ML IVPB IV STA (02:36)
[2017-08-21] MEDS ORDERED: Zithromax 500 MG/ 250 ML NaCl Premix 500 MG/250 ML IVPB IV STA (02:36)
[2017-08-21] MEDS ORDERED: TYLENOL 325 MG PO ONE (02:42)
[2017-08-21] MEDS ORDERED: Sodium Chloride 0.9% 1000 ML 1,000 ML ONE (02:44)
[2017-08-21] MEDS ORDERED: TYLENOL EXTRA STRENGTH 500 MG ONE (02:44)
[2017-08-21] MEDS ORDERED: ROCEPHIN 1 Gm-D5w 50 ml Bag** 1 G/50 ML IVPB IV ONE (02:44)
[2017-08-21] MEDS ORDERED: Sodium Chloride 0.9% 1000 ML 1,000 ML IV SCH (02:45)
[2017-08-21] MEDS ORDERED: TYLENOL 325 MG ONE (02:46)
--- NOTE | 2017-08-21 02:48 | ERPHSYRPT ---
- History of Present Illness Time Seen by Provider: 08/21/17 02:30 Source: patient Exam Limitations: no limitations Patient Subjective Stated Complaint: pt states she has been sob for several weeks. states she has not felt better since she left the hospital 2 weeks ago. states sob became worse this morning. Triage Nursing Assessment: pt pink, cool, dry. wheezes noted throughout lung green. pt speaking in short sentences Physician History: FOR THE PAST 2 WEEKS PT HAS HAD WHEEZING AND CHEST PAIN; FOR THE PAST 3 DAYS LOWER ABDOMINAL CRAMPING AND NAUSEA; FOR THE PAST 2.5 HOURS SHORTNESS OF AIR; PT ALSO C/O INTERMITTENT HEADACHES FOR THE PAST YEAR. Allergies/Adverse Reactions: povidone-iodine [From Betadine] Allergy (Mild, Verified 08/21/17 02:39) Blisters soap [From Betadine] Allergy (Mild, Verified 08/21/17 02:39) Blisters sulfamethoxazole [From Bactrim] Allergy (Mild, Verified 08/21/17 02:39) "weird hives" trimethoprim [From Bactrim] Allergy (Mild, Verified 08/21/17 02:39) "weird hives" divalproex sodium [From Depakote] Allergy (Verified 08/21/17 02:39) according to family Home Medications: Albuterol/Ipratropium 3ml Neb* [DUONEB 0.5-3 MG/3 ml Neb] 3 ml IH Q4-6HPRN PRN 08/21/17 [History] Varenicline Tartrate [Chantix] 1 each PO DAILY 08/21/17 [History] Hx Tetanus, Diphtheria Vaccination/Date Given: Yes (up to date) Hx Influenza Vaccination/Date Given: No Hx Pneumococcal Vaccination/Date Given: No Immunizations Up to Date: Yes - Review of Systems Respiratory: Dyspnea, Wheezing Cardiac: Chest Pain Abdominal/Gastrointestinal: Abdominal Pain Neurological: Headache All Other Systems: Reviewed and Negative - Past Medical History Pertinent Past Medical History: Yes Neurological History: Migraines ENT History: No Pertinent History Cardiac History: Other Respiratory History: Asthma, Bronchitis, Pneumonia Endocrine Medical History: No Pertinent History Musculoskeletal History: Fractures, Other GI Medical History: No Pertinent History History: No Pertinent History Psycho-Social History: Anxiety, Depression Female Reproductive Disorders: No Pertinent History Other Medical History: Hx anxiety - Past Surgical History Past Surgical History: Yes Neuro Surgical History: No Pertinent History Cardiac: No Pertinent History Respiratory: No Pertinent History Gastrointestinal: Appendectomy Genitourinary: No Pertinent History Musculoskeletal: Other Female Surgical History: Section Other Surgical History: Left elbow repair, right knee repair - Social History Smoking Status: Current every day smoker How long have you smoked: 16 Exposure to second hand smoke: Yes Alcohol Use: Socially Drug Use: none Patient Lives Alone: No Significant Family History: no pertinent family hx - Female History Hx Last Menstrual Period: jul 24 2017 Hx Now: No - Nursing Vital Signs Nursing Vital Signs: Initial Vital Signs Temperature 98.7 F 08/21/17 02:31 Pulse Rate 125 H 08/21/17 02:31 Respiratory Rate 26 H 08/21/17 02:31 Blood Pressure 112/81 08/21/17 02:31 O2 Sat by Pulse Oximetry 98 08/21/17 02:31 Pain Scale Pain Intensity 3 - Physical Exam General Appearance: alert, anxiety Eye Exam: PERRL/EOMI Ears, Nose, Throat Exam: TMs normal, moist mucous membranes, pharyngeal erythema Neck Exam: normal inspection Respiratory Exam: wheezing Cardiovascular Exam: tachycardia Gastrointestinal/Abdomen Exam: soft, normal bowel sounds Back Exam: normal range of motion Extremity Exam: normal inspection, No pedal edema Neurologic Exam: alert, cooperative Skin Exam: warm, dry SpO2 Interpretation: normal SpO2: 98 Oxygen Delivery: Non-rebreather - Course Nursing assessment & vital signs reviewed: Yes EKG Interpreted by Me: RATE (103), Sinus Tach, NORMAL AXIS, Other (UNIFOCAL PVC' S) - Radiology Exams Chest X-ray Interpretation: Interpreted by me, No Pneumonia Ordered Tests: Active Orders 24 hr Category Date Time Status Fabrication Lead STAT Care 08/21/17 02:37 Active Clean Catch Urine Specimen STAT Care 08/21/17 02:33 Active EKG-ER Only STAT Care 08/21/17 02:33 Active IV Insertion STAT Care 08/21/17 02:33 Active CHEST 2 VIEWS (PA AND LAT) Stat Exams 08/21/17 02:34 Taken AMYLASE Stat Lab 08/21/17 02:45 Completed ARTERIAL BLOOD GASES Stat Lab 08/21/17 Ordered BLOOD CULTURE Stat Lab 08/21/17 03:00 Received CBC W DIFF Stat Lab 08/21/17 02:45 Completed CMP Stat Lab 08/21/17 02:45 Completed CULTURE,SPUTUM Stat Lab 08/21/17 02:37 Uncollected HCG QUALITATIVE,SERUM Stat Lab 08/21/17 02:45 Completed LIPASE Stat Lab 08/21/17 02:45 Completed Lactic Acid Stat Lab 08/21/17 03:00 Completed TROPONIN Q3H Lab 08/21/17 02:45 Completed TROPONIN Q3H Lab 08/21/17 05:45 Ordered TROPONIN Q3H Lab 08/21/17 08:45 Ordered TROPONIN Q3H Lab 08/21/17 11:45 Ordered TROPONIN Q3H Lab 08/21/17 14:45 Ordered UA W/RFX UR CULTURE Stat Lab 08/21/17 03:00 Completed Urine Triage Profile Stat Lab 08/21/17 03:00 Completed Medication Summary Generic Name Dose Route Start Last Admin Trade Name Freq PRN Reason Stop Dose Admin Sodium Chloride 1,000 mls @ 100 mls/hr 08/21/17 02:45 08/21/17 03:01 Sodium Chloride 0.9% 1000 Ml IV 09/20/17 02:44 100 mls/hr .Q10H HELDER Administration Discontinued Medications Generic Name Dose Route Start Last Admin Trade Name Freq PRN Reason Stop Dose Admin Acetaminophen 650 mg 08/21/17 02:42 08/21/17 03:01 Tylenol 325 Mg PO 08/21/17 02:43 650 mg STAT ONE Administration Acetaminophen Confirm 08/21/17 02:44 Tylenol Extra Strength 500 Mg Administered 08/21/17 02:45 Dose 1,000 mg .ROUTE .STK-MED ONE Acetaminophen Confirm 08/21/17 02:46 Tylenol 325 Mg Administered 08/21/17 02:47 Dose 650 mg .ROUTE .STK-MED ONE Ceftriaxone Sodium/Dextrose 1 g in 50 mls @ 100 mls/hr 08/21/17 02:36 03:02 Rocephin 1 Gm-D5w 50 Ml Bag IV 08/21/17 03:05 100 mls/hr STAT STA Administration Azithromycin 500 mg in 250 mls @ 250 mls/hr 08/21/17 02:36 08/21/17 03:45 Zithromax 500 Mg/ 250 Ml Nacl Premix IV 08/21/17 03:35 250 mls/hr STAT STA Administration Ceftriaxone Sodium/Dextrose Confirm 08/21/17 02:44 Rocephin 1 Gm-D5w 50 Ml Bag Administered 08/21/17 02:45 Dose 1 g in 50 mls @ ud IV .STK-MED ONE Azithromycin Confirm 08/21/17 03:42 Zithromax 500 Mg/ 250 Ml Nacl Premix Administered 08/21/17 03:43 Dose 500 mg in 250 mls @ ud IV .STK-MED ONE Lab/Rad Data: Laboratory Result Diagrams 08/21/17 02:45 08/21/17 02:45 Laboratory Results 08/21/17 08/21/17 08/21/17 Range/Units 03:00 03:00 03:00 WBC (4.0-10.5) K/mm3 RBC (4.1-5.4) M/mm3 Hgb (12.0-16.0) gm/dl Hct (35-47) % MCV (78-100) fl MCH (26-32) pg MCHC (32-36) g/dl RDW (11.5-14.0) % Plt Count (150-450) K/mm3 MPV (6-9.5) fl Gran % (36.0-66.0) % Lymphocytes % (24.0-44.0) % Monocytes % (0.0-12.0) % Eosinophils % (0.00-5.0) % Basophils % (0.0-0.4) % Basophils # (0-0.4) Sodium (136-145) mEq/L Potassium (3.5-5.1) mEq/L Chloride (98-107) mEq/L Carbon Dioxide (21-32) mEq/L Anion Gap (5-15) MEQ/L BUN (9-20) mg/dL Creatinine (0.55-1.30) mg/dl Estimated GFR ML/MIN Glucose (70-110) MG/DL Lactic Acid 1.1 (0.4-2.0) Calcium (8.5-10.1) mg/dL Total Bilirubin (0.2-1.0) mg/dL AST (15-37) U/L ALT (12-78) U/L Alkaline Phosphatase (46-116) U/L Troponin I (0.000-0.056) ng/ml Serum Total Protein (6.4-8.2) gm/dL Albumin (3.4-5.0) g/dL Amylase (25-115) U/L Lipase (73-393) U/L Serum , Qual (Negative) Ur Collection Type CLEAN CATCH Urine Color YELLOW (YELLOW) Urine Appearance CLEAR (CLEAR) Urine pH 5.0 (5-6) Ur Specific [place] 1.010 (1.005-1.025) Urine Protein NEGATIVE (Negative) Urine Ketones NEGATIVE (NEGATIVE) Urine Blood NEGATIVE (0-5) Jeff/ul Urine Nitrite NEGATIVE (NEGATIVE) Urine Bilirubin NEGATIVE (NEGATIVE) Urine Urobilinogen NORMAL (0-1) mg/dL Ur Leukocyte Esterase NEGATIVE (NEGATIVE) Urine Glucose NEGATIVE (NEGATIVE) mg/dL Urine Opiates Level NEG. (NEGATIVE) Ur Methadone NEG. (NEGATIVE) Urine Barbiturates NEG. (NEGATIVE) Ur Phencyclidine (PCP) NEG. (NEGATIVE) Urine Amphetamine NEG. (NEGATIVE) U Benzodiazepine Level NEG. (NEGATIVE) Urine Cocaine NEG. (NEGATIVE) Urine Marijuana (THC) POS. (NEGATIVE) Specimen Received 08/21/17:0300 08/21/17 08/21/17 08/21/17 Range/Units 02:45 02:45 02:45 WBC (4.0-10.5) K/mm3 RBC (4.1-5.4) M/mm3 Hgb (12.0-16.0) gm/dl Hct (35-47) % MCV (78-100) fl MCH (26-32) pg MCHC (32-36) g/dl RDW (11.5-14.0) % Plt Count (150-450) K/mm3 MPV (6-9.5) fl Gran % (36.0-66.0) % Lymphocytes % (24.0-44.0) % Monocytes % (0.0-12.0) % Eosinophils % (0.00-5.0) % Basophils % (0.0-0.4) % Basophils # (0-0.4) Sodium 145 (136-145) mEq/L Potassium 3.4 L (3.5-5.1) mEq/L Chloride 109 H (98-107) mEq/L Carbon Dioxide 22.7 (21-32) mEq/L Anion Gap 16.5 H (5-15) MEQ/L BUN 9 (9-20) mg/dL Creatinine 0.95 (0.55-1.30) mg/dl Estimated GFR > 60 ML/MIN Glucose 98 (70-110) MG/DL Lactic Acid (0.4-2.0) Calcium 9.2 (8.5-10.1) mg/dL Total Bilirubin 0.40 (0.2-1.0) mg/dL AST 12 L (15-37) U/L ALT 16 (12-78) U/L Alkaline Phosphatase 59 (46-116) U/L Troponin I < 0.017 (0.000-0.056) ng/ml Serum Total Protein 6.8 (6.4-8.2) gm/dL Albumin 4.0 (3.4-5.0) g/dL Amylase 35 (25-115) U/L Lipase 89 (73-393) U/L Serum , Qual NEGATIVE (Negative) Ur Collection Type Urine Color (YELLOW) Urine Appearance (CLEAR) Urine pH (5-6) Ur Specific [place] (1.005-1.025) Urine Protein (Negative) Urine Ketones (NEGATIVE) Urine Blood (0-5) Jeff/ul Urine Nitrite (NEGATIVE) Urine Bilirubin (NEGATIVE) Urine Urobilinogen (0-1) mg/dL Ur Leukocyte Esterase (NEGATIVE) Urine Glucose (NEGATIVE) mg/dL Urine Opiates Level (NEGATIVE) Ur Methadone (NEGATIVE) Urine Barbiturates (NEGATIVE) Ur Phencyclidine (PCP) (NEGATIVE) Urine Amphetamine (NEGATIVE) U Benzodiazepine Level (NEGATIVE) Urine Cocaine (NEGATIVE) Urine Marijuana (THC) (NEGATIVE) Specimen Received 08/21/17 Range/Units 02:45 WBC 8.9 (4.0-10.5) K/mm3 RBC 4.51 (4.1-5.4) M/mm3 Hgb 13.9 (12.0-16.0) gm/dl Hct 41.0 (35-47) % MCV 90.9 (78-100) fl MCH 30.8 (26-32) pg MCHC 33.9 (32-36) g/dl RDW 13.2 (11.5-14.0) % Plt Count 236 (150-450) K/mm3 MPV 9.8 H (6-9.5) fl Gran % 70.0 H (36.0-66.0) % Lymphocytes % 17.4 L (24.0-44.0) % Monocytes % 4.4 (0.0-12.0) % Eosinophils % 7.6 H (0.00-5.0) % Basophils % 0.6 (0.0-0.4) % Basophils # 0.05 (0-0.4) Sodium (136-145) mEq/L Potassium (3.5-5.1) mEq/L Chloride (98-107) mEq/L Carbon Dioxide (21-32) mEq/L Anion Gap (5-15) MEQ/L BUN (9-20) mg/dL Creatinine (0.55-1.30) mg/dl Estimated GFR ML/MIN Glucose (70-110) MG/DL Lactic Acid (0.4-2.0) Calcium (8.5-10.1) mg/dL Total Bilirubin (0.2-1.0) mg/dL AST (15-37) U/L ALT (12-78) U/L Alkaline Phosphatase (46-116) U/L Troponin I (0.000-0.056) ng/ml Serum Total Protein (6.4-8.2) gm/dL Albumin (3.4-5.0) g/dL Amylase (25-115) U/L Lipase (73-393) U/L Serum , Qual (Negative) Ur Collection Type Urine Color (YELLOW) Urine Appearance (CLEAR) Urine pH (5-6) Ur Specific [place] (1.005-1.025) Urine Protein (Negative) Urine Ketones (NEGATIVE) Urine Blood (0-5) Jeff/ul Urine Nitrite (NEGATIVE) Urine Bilirubin (NEGATIVE) Urine Urobilinogen (0-1) mg/dL Ur Leukocyte Esterase (NEGATIVE) Urine Glucose (NEGATIVE) mg/dL Urine Opiates Level (NEGATIVE) Ur Methadone (NEGATIVE) Urine Barbiturates (NEGATIVE) Ur Phencyclidine (PCP) (NEGATIVE) Urine Amphetamine (NEGATIVE) U Benzodiazepine Level (NEGATIVE) Urine Cocaine (NEGATIVE) Urine Marijuana (THC) (NEGATIVE) Specimen Received - Departure Time of Disposition: 04:50 Departure Disposition: Home Clinical Impression: PHARYNGITIS, ASTHMATIC BRONCHITIS, MARIJUANA USE, ANXIETY Condition: Stable Critical Care Time: No Referrals: CARLENE MENA MD [Primary Care Provider] - Instructions: Asthma -- Adult, Bronchitis Additional Instructions: FOLLOW UP WITH PRIVATE DOCTOR TOMORROW. DO NOT USE MARIJUANA. Prescriptions: Guaifenesin/Codeine Phosphate [Robitussin AC Syrup] 10 ml PO Q4H PRN PRN #120 ml PRN Reason: Cough Azithromycin 250 mg [Zithromax 250 MG TABLET] 250 mg PO ZPACK #6 tablet
[2017-08-21 03:19] LABS: BASOPHIL % 0.6 % (0.0-0.4); Eosinophil % 7.6 % (0.00-5.0); Lymphocytes % 17.4 % (24.0-44.0); Mean Cell Volume 90.9 fl (78-100); Mean Corpuscular Hemoglobin 30.8 pg (26-32); Mean Platelet Volume 9.8 fl (6-9.5); Monocytes % 4.4 % (0.0-12.0); Platelet Count 236 K/mm3 (150-450); Red Blood Count 4.51 M/mm3 (4.1-5.4); Red Cell Distribution Width 13.2 % (11.5-14.0); White Blood Count 8.9 K/mm3 (4.0-10.5)
[2017-08-21 03:30] LABS: ADD URINE CULTURE? NO (NO); Bilirubin NEGATIVE (NEGATIVE); Blood NEGATIVE Ery/ul (0-5); COMPLETE URINE MICROSCOPIC? NO; Collection Type CLEAN CATCH; Glucose NEGATIVE (NEGATIVE); Leukocyte Esterase NEGATIVE (NEGATIVE)
[2017-08-21] MEDS ORDERED: Zithromax 500 MG/ 250 ML NaCl Premix 500 MG/250 ML IVPB IV ONE (03:42)
[2017-08-21 04:06] LABS: ALKALINE PHOSPHATASE 59 U/L (46-116); ANION GAP 16.5 MEQ/L (5-15); BLOOD UREA NITROGEN 9 mg/dL (9-20); CHLORIDE 109 mEq/L (98-107); Carbon Dioxide 22.7 mEq/L (21-32); Glucose 98 MG/DL (70-110); LIPASE 89 U/L (73-393); Potassium 3.4 mEq/L (3.5-5.1); SGOT/AST 12 U/L (15-37); SGPT/ALT 16 U/L (12-78); SODIUM 145 mEq/L (136-145); Total Protein 6.8 gm/dL (6.4-8.2)
[2017-08-21] MEDS ORDERED: PROVENTIL 2.5 MG/3 ML NEB IH ONE ×2 (05:18→05:24)
[2017-08-21 05:30] VITALS: BP 122/72; PULSE 112; O2SAT 95
--- NOTE | 2017-08-21 09:33 | XRAY ---
Indication: Short of breath. Comparison: June 30, 2017. PA/lateral chest again demonstrates normal heart and lungs. Bony thoracic intact again with minimal scoliosis.
== END 2017-08-21 05:50 | disposition home or self-care (01) ==
LOC: ED 02:20
DX: J02.9 Acute pharyngitis, unspecified (principal); J45.909 Unspecified asthma, uncomplicated; F12.90 Cannabis use, unspecified, uncomplicated; F41.9 Anxiety disorder, unspecified; R05 Cough
CPT/HCPCS: 36000; 36415; 71020; 80053; 80307; 81002; 82150; 83605; 83690; 84484; 84703; 85025; 87040; 93005; 93041; 94640; 96360; 96361; 96365; 96367; 99284; J0456; J0696; A9270-GY

== ENCOUNTER 2017-08-22 08:31 | Emergency (ER) | payer OTHER ==
[~2017-08-22 08:31] MED LIST changes: -DUONEB 0.5-3 MG/3 ml Neb IH ONE; +NARCAN 1 MG/ML IV ONE
[2017-08-22] MEDS ORDERED: Sodium Chloride 0.9% 1000 ML 1,000 ML ONE ×3 (08:34→09:20)
[2017-08-22] MEDS ORDERED: DUONEB 0.5-3 MG/3 ml Neb IH ONE (08:37)
[2017-08-22] MEDS ORDERED: DUONEB 0.5-3 MG/3 ml Neb IH SCH (08:37)
[2017-08-22] MEDS ORDERED: Sodium Chloride 0.9% 1000 ML 1,000 ML IV STA ×2 (08:40→08:41)
--- NOTE | 2017-08-22 08:41 | ERPHSYRPT ---
- History of Present Illness Time Seen by Provider: 08/22/17 08:31 Source: EMS Patient Subjective Stated Complaint: cardiac and respiratory arrest Physician History: 27-year-old white female brought by medics with Combitube in place Patient apparently contacted EMS with complaints of shortness of breath EMS had arrived patient noticed to go into respiratory and cardiac arrest. CPR began Medics arrived patient was given Combitube patient was given 5 doses of epinephrine, and 1 mg atropine and CPR EMS arrived at 733 paramedics arrived at 745. Patient arrives at 0728 unresponsive. Patient with Combitube in place. Breath sounds bilaterally. Positive pulse. Patient's Combitube is changed into ET tube by respiratory. Patient currently with pupils markedly dilated patient unresponsive to pain. Good breath sounds through ET tube with bag ventilation. Timing/Duration: today Severity: severe Associated Symptoms: other (unable to obtain review of systems) Allergies/Adverse Reactions: povidone-iodine [From Betadine] Allergy (Mild, Verified 08/21/17 02:39) Blisters soap [From Betadine] Allergy (Mild, Verified 08/21/17 02:39) Blisters sulfamethoxazole [From Bactrim] Allergy (Mild, Verified 08/21/17 02:39) "weird hives" trimethoprim [From Bactrim] Allergy (Mild, Verified 08/21/17 02:39) "weird hives" divalproex sodium [From Depakote] Allergy (Verified 08/21/17 02:39) according to family Home Medications: Albuterol/Ipratropium 3ml Neb* [DUONEB 0.5-3 MG/3 ml Neb] 3 ml IH Q4-6HPRN PRN 08/21/17 [History] Varenicline Tartrate [Chantix] 1 each PO DAILY 08/21/17 [History] Hx Tetanus, Diphtheria Vaccination/Date Given: Yes (up to date) Hx Influenza Vaccination/Date Given: No Hx Pneumococcal Vaccination/Date Given: No - Review of Systems All Other Systems: Unable due to condition (unable to obtain review of systems) - Past Medical History Pertinent Past Medical History: Yes Neurological History: Migraines ENT History: No Pertinent History Cardiac History: Other Respiratory History: Asthma, Bronchitis, Pneumonia Endocrine Medical History: No Pertinent History Musculoskeletal History: Fractures, Other GI Medical History: No Pertinent History History: No Pertinent History Psycho-Social History: Anxiety, Depression Female Reproductive Disorders: No Pertinent History Other Medical History: Hx anxiety - Past Surgical History Past Surgical History: Yes Neuro Surgical History: No Pertinent History Cardiac: No Pertinent History Respiratory: No Pertinent History Gastrointestinal: Appendectomy Genitourinary: No Pertinent History Musculoskeletal: Other Female Surgical History: Section Other Surgical History: Left elbow repair, right knee repair - Social History Smoking Status: Current every day smoker How long have you smoked: 16 Exposure to second hand smoke: Yes Alcohol Use: Socially Drug Use: none Patient Lives Alone: No Significant Family History: no pertinent family hx - Female History Hx Now: No - Course Nursing assessment & vital signs reviewed: Yes EKG Interpreted by Me: RATE (128 bpm), Sinus Tach, NORMAL INTERVALS, Other (EKG this is Dr. Conrad) - Radiology Exams Chest X-ray Interpretation: Discussed w/ radiologist, Other (chest x-ray: Interval intubation with endotracheal to 2 cm above the rm.NG tube tip at the gastroesophageal junction. Remaining chest demonstrates new left perihilar interstitial alveolar opacity remaining chest unchanged) Ordered Tests: Active Orders 24 hr Category Date Time Status CHEST 1 VIEW (PORTABLE) Stat Exams 08/22/17 08:36 Completed ABG [ARTERIAL BLOOD GASES] Stat Lab 08/22/17 08:35 Completed ABG [ARTERIAL BLOOD GASES] Stat Lab 08/22/17 08:50 Completed BLOOD CULTURE Stat Lab 08/22/17 08:30 Received CBC Stat Lab 08/22/17 08:15 Completed CMP Stat Lab 08/22/17 08:15 Completed D-DIMER QUANTITATION Stat Lab 08/22/17 08:36 Completed Glucose,Critical Care Urgent Lab 08/22/17 Ordered HCG QUALITATIVE,SERUM Stat Lab 08/22/17 09:00 Completed Lactic Acid Urgent Lab 08/22/17 Ordered PROTIME WITH INR Stat Lab 08/22/17 08:36 Completed PTT Stat Lab 08/22/17 08:36 Completed Urine Triage Profile Stat Lab 08/22/17 09:21 Completed EKG STAT RT 08/22/17 08:38 Active Medication Summary Generic Name Dose Route Start Last Admin Trade Name Freq PRN Reason Stop Dose Admin Dopamine HCl/Dextrose 250 mls @ 0 mls/hr 08/22/17 08:52 08/22/17 08:52 Dopamine 400 Mg/D5w 250ml Premix IV 09/21/17 08:51 22 mls/hr .Q0M PRN Administration SEVERE HYPOTENSION Protocol Titrate Discontinued Medications Generic Name Dose Route Start Last Admin Trade Name Marlen PRN Reason Stop Dose Admin Albuterol Sulfate Confirm 08/22/17 08:59 Proventil 2.5 Mg/3 Ml Neb Administered 08/22/17 09:00 Dose 2.5 mg IH .STK-MED ONE Albuterol/Ipratropium Confirm 08/22/17 08:37 Duoneb 0.5-3 Mg/3 Ml Neb Administered 08/22/17 08:38 Dose 3 ml IH .STK-MED ONE Sodium Chloride Confirm 08/22/17 08:34 Sodium Chloride 0.9% 1000 Ml Administered 08/22/17 08:35 Dose 1,000 mls @ ud .ROUTE .STK-MED ONE Sodium Chloride 1,000 mls @ 999 mls/hr 08/22/17 08:41 08/22/17 09:00 Sodium Chloride 0.9% 1000 Ml IV 08/22/17 09:41 999 mls/hr .Q1H1M STA Administration Sodium Chloride Confirm 08/22/17 08:47 Sodium Chloride 0.9% 1000 Ml Administered 08/22/17 08:48 Dose 1,000 mls @ ud .ROUTE .STK-MED ONE Dopamine HCl/Dextrose Confirm 08/22/17 08:48 Dopamine 400 Mg/D5w 250ml Premix Administered 08/22/17 08:49 Dose 250 mls @ ud IV .STK-MED ONE Ceftriaxone Sodium/Dextrose Confirm 08/22/17 09:00 Rocephin 1 Gm-D5w 50 Ml Bag Administered 08/22/17 09:01 Dose 1 g in 50 mls @ ud IV .STK-MED ONE Sodium Chloride Confirm 08/22/17 09:20 Sodium Chloride 0.9% 1000 Ml Administered 08/22/17 09:21 Dose 1,000 mls @ ud .ROUTE .STK-MED ONE Ceftriaxone Sodium/Dextrose 1 g in 50 mls @ 100 mls/hr 08/22/17 09:13 09:13 Rocephin 1 Gm-D5w 50 Ml Bag IV 08/22/17 09:42 100 mls/hr STAT ONE Administration Methylprednisolone Sodium Succinate Confirm 08/22/17 09:00 Solu-Medrol 125 Mg Administered 08/22/17 09:01 Dose 125 mg .ROUTE .STK-MED ONE Methylprednisolone Sodium Succinate 125 mg 08/22/17 09:05 08/22/17 09:05 Solu-Medrol 125 Mg IV 08/22/17 09:06 125 mg STAT ONE Administration Naloxone HCl 2 mg 08/22/17 08:29 08/22/17 08:31 Narcan 1 Mg/Ml IV 08/22/17 08:30 2 mg STAT ONE Administration Lab/Rad Data: Laboratory Result Diagrams 08/22/17 08:15 08/22/17 08:15 Laboratory Results 08/22/17 08/22/17 08/22/17 Range/Units 09: 09:00 08:50 WBC (4.0-10.5) K/mm3 RBC (4.1-5.4) M/mm3 Hgb (12.0-16.0) gm/dl Hct (35-47) % MCV (78-100) fl MCH (26-32) pg MCHC (32-36) g/dl RDW (11.5-14.0) % Plt Count (150-450) K/mm3 MPV (6-9.5) fl INR (0.8-3.0) APTT (25.3-37.0) SECONDS D-Dimer (0-500) ng/mL Puncture Site RIGHT BRACHIAL pCO2 73 H* (35-45) mmHg pO2 132 H* (75-100) mmHg Base Excess -21.9 L (-2.0-2.0) O2 Saturation 96.9 (94-100) g/dF ABG pH 6.83 L* (7.35-7.45) ABG HCO3 12.2 L* (22-28) ABG O2 Sat (Measured) 99.1 (95-100) % Seb Test NOT APPLICABLE A-a Gradient 490 a/A Ratio 0.21 Hemoglobin 10.9 Carboxyhemoglobin 1.8 (0.0-6.9) % THgb Methemoglobin 0.4 L (1.4-1.5) % Temperature 37.0 C POC O2 Flow Rate 100 % Sodium (136-145) mEq/L Potassium 4.8 (3.5-5.1) mEq/L Chloride (98-107) mEq/L Carbon Dioxide (21-32) mEq/L Anion Gap (5-15) MEQ/L BUN (9-20) mg/dL Creatinine (0.55-1.30) mg/dl Estimated GFR ML/MIN Glucose (70-110) MG/DL Calcium (8.5-10.1) mg/dL Total Bilirubin (0.2-1.0) mg/dL AST (15-37) U/L ALT (12-78) U/L Alkaline Phosphatase (46-116) U/L Serum Total Protein (6.4-8.2) gm/dL Albumin (3.4-5.0) g/dL Serum , Qual NEGATIVE (Negative) Urine Opiates Level NEG. (NEGATIVE) Ur Methadone NEG. (NEGATIVE) Urine Barbiturates NEG. (NEGATIVE) Ur Phencyclidine (PCP) NEG. (NEGATIVE) Urine Amphetamine NEG. (NEGATIVE) U Benzodiazepine Level NEG. (NEGATIVE) Urine Cocaine NEG. (NEGATIVE) Urine Marijuana (THC) NEG. (NEGATIVE) 08/22/17 08/22/17 08/22/17 Range/Units 08:36 08:35 08:15 WBC (4.0-10.5) K/mm3 RBC (4.1-5.4) M/mm3 Hgb (12.0-16.0) gm/dl Hct (35-47) % MCV (78-100) fl MCH (26-32) pg MCHC (32-36) g/dl RDW (11.5-14.0) % Plt Count (150-450) K/mm3 MPV (6-9.5) fl INR 1.10 (0.8-3.0) APTT 63.6 H (25.3-37.0) SECONDS D-Dimer 2112 H* (0-500) ng/mL Puncture Site VENOUS pCO2 104 H* (35-45) mmHg pO2 50 L* (75-100) mmHg Base Excess (-2.0-2.0) O2 Saturation 63.1 L (94-100) g/dF ABG pH < 6.80 L* (7.35-7.45) ABG HCO3 (22-28) ABG O2 Sat (Measured) 64.7 L (95-100) % Sbe Test NOT APPLICABLE A-a Gradient a/A Ratio Hemoglobin 11.4 Carboxyhemoglobin 2.2 (0.0-6.9) % THgb Methemoglobin 0.3 L (1.4-1.5) % Temperature 37.0 C POC O2 Flow Rate 100 % Sodium 145 (136-145) mEq/L Potassium 5.0 5.0 (3.5-5.1) mEq/L Chloride 107 (98-107) mEq/L Carbon Dioxide 15.7 L* (21-32) mEq/L Anion Gap 27.1 H (5-15) MEQ/L BUN 13 (9-20) mg/dL Creatinine 1.41 H (0.55-1.30) mg/dl Estimated GFR 48 ML/MIN Glucose 395 H (70-110) MG/DL Calcium 8.4 L (8.5-10.1) mg/dL Total Bilirubin 0.10 L (0.2-1.0) mg/dL AST 25 (15-37) U/L ALT 25 (12-78) U/L Alkaline Phosphatase 51 (46-116) U/L Serum Total Protein 5.3 L (6.4-8.2) gm/dL Albumin 2.8 L (3.4-5.0) g/dL Serum , Qual (Negative) Urine Opiates Level (NEGATIVE) Ur Methadone (NEGATIVE) Urine Barbiturates (NEGATIVE) Ur Phencyclidine (PCP) (NEGATIVE) Urine Amphetamine (NEGATIVE) U Benzodiazepine Level (NEGATIVE) Urine Cocaine (NEGATIVE) Urine Marijuana (THC) (NEGATIVE) 08/22/17 Range/Units 08:15 WBC 13.2 H (4.0-10.5) K/mm3 RBC 3.52 L (4.1-5.4) M/mm3 Hgb 11.1 L (12.0-16.0) gm/dl Hct 35.2 (35-47) % MCV 100.0 (78-100) fl MCH 31.5 (26-32) pg MCHC 31.5 L (32-36) g/dl RDW 13.4 (11.5-14.0) % Plt Count 259 (150-450) K/mm3 MPV 10.9 H (6-9.5) fl INR (0.8-3.0) APTT (25.3-37.0) SECONDS D-Dimer (0-500) ng/mL Puncture Site pCO2 (35-45) mmHg pO2 (75-100) mmHg Base Excess (-2.0-2.0) O2 Saturation (94-100) g/dF ABG pH (7.35-7.45) ABG HCO3 (22-28) ABG O2 Sat (Measured) (95-100) % Seb Test A-a Gradient a/A Ratio Hemoglobin Carboxyhemoglobin (0.0-6.9) % THgb Methemoglobin (1.4-1.5) % Temperature C POC O2 Flow Rate % Sodium (136-145) mEq/L Potassium (3.5-5.1) mEq/L Chloride (98-107) mEq/L Carbon Dioxide (21-32) mEq/L Anion Gap (5-15) MEQ/L BUN (9-20) mg/dL Creatinine (0.55-1.30) mg/dl Estimated GFR ML/MIN Glucose (70-110) MG/DL Calcium (8.5-10.1) mg/dL Total Bilirubin (0.2-1.0) mg/dL AST (15-37) U/L ALT (12-78) U/L Alkaline Phosphatase (46-116) U/L Serum Total Protein (6.4-8.2) gm/dL Albumin (3.4-5.0) g/dL Serum , Qual (Negative) Urine Opiates Level (NEGATIVE) Ur Methadone (NEGATIVE) Urine Barbiturates (NEGATIVE) Ur Phencyclidine (PCP) (NEGATIVE) Urine Amphetamine (NEGATIVE) U Benzodiazepine Level (NEGATIVE) Urine Cocaine (NEGATIVE) Urine Marijuana (THC) (NEGATIVE) - Progress Progress: improved Progress Note: 08/22/17 09:02 27-year-old white female who was seen yesterday in this emergency room. for pharyngitis bronchitis bronchospasm anxiety and marijuana use. Patient apparently this morning called medics complaining of shortness of breath. On arrival a basic medics patient was unresponsive this was at 733 they initiated CPR contacted paramedics who continued CPR placed a Combitube, patient was noted to have PEA she was given 5 doses of epinephrine, one dose of atropine Medics were able to obtain a pulse. On arrival patient has a palpable pulse she has bilateral breath sounds through the Combitube she is somewhat wheezy. Combitube is changed to an endotracheal tube by respiratory. Patient initially tachycardic currently heart rate approximately 1 32 bpm sats 96% blood pressure 72/53. Dopamine drip has been ordered normal saline has been ordered Rocephin 1 g IV has been ordered blood cultures have been ordered urine has been ordered urine drug screen has been ordered. Patient has received Narcan without response. Currently patient is intubated good breath sounds bilaterally chest x-ray shows ET tube 2 cm above the rm NG tube has been placed with tip of the tube at the gastroesophageal junction. EKG shows sinus tachycardia 1 28 bpm normal axis. Patient has been given Solu-Medrol albuterol has been ordered . I have discussed the patient's case with Dr. Nagi Mcdonough at [facility] ER he has accepted the patient. Will transfer patient to [facility] emergency room Impression asthma with exacerbation, respiratory arrest, cardiac arrest hypotension 08/22/17 09:06 - Departure Time of Disposition: 09:06 Departure Disposition: Transfer (Transfer to [facility] emergency room Dr. Mcdonough) Clinical Impression: Respiratory arrest, Cardiac arrest Asthma with exacerbation Qualifiers: Asthma severity: severe persistent Qualified Code(s): J45.51 - Severe persistent asthma with (acute) exacerbation Condition: Critical Critical Care Time: Yes Critical Care Time(excluding separately billable procedures): 30-74 minutes Referrals: CARLENE MENA MD [Primary Care Provider] -
[2017-08-22 08:42] LABS: ARTERIAL BLD GAS O2 SATURATION 64.7 % (95-100); ARTERIAL BLOOD GAS FIO2 100 %; ARTERIAL BLOOD GAS pH < 6.80 (7.35-7.45)
[2017-08-22 08:43] LABS: ARTERIAL BLOOD GAS PO2 50 mmHg (75-100)
[2017-08-22 08:45] LABS: Mean Corpuscular Hemoglobin 31.5 pg (26-32); Mean Platelet Volume 10.9 fl (6-9.5); Platelet Count 259 K/mm3 (150-450); Red Blood Count 3.52 M/mm3 (4.1-5.4); Red Cell Distribution Width 13.4 % (11.5-14.0); White Blood Count 13.2 K/mm3 (4.0-10.5)
[2017-08-22] MEDS ORDERED: Dopamine 400 MG/D5W 250ML PREMIX 250 ML IV ONE (08:48)
[2017-08-22] MEDS ORDERED: Dopamine 400 MG/D5W 250ML PREMIX 250 ML IV PRN (08:52)
[2017-08-22 08:55] LABS: A-aADO2 490; ARTERIAL BLD GAS O2 SATURATION 99.1 % (95-100); ARTERIAL BLOOD GAS BASE EXCESS -21.9 (-2.0-2.0); ARTERIAL BLOOD GAS FIO2 100 %; ARTERIAL BLOOD GAS PO2 132 mmHg (75-100)
--- NOTE | 2017-08-22 08:55 | XRAY ---
Indication: Tube placement. Comparison: One day earlier. Portable chest demonstrates interval intubation with endotracheal tube tip 2 cm above the rm. New NG tube tip at the GE junction. Remaining chest demonstrates new left perihilar interstitial alveolar opacity. Remaining chest unchanged.
[2017-08-22 08:56] LABS: ARTERIAL BLOOD GAS pH 6.83 (7.35-7.45)
[2017-08-22] MEDS ORDERED: PROVENTIL 2.5 MG/3 ML NEB IH ONE (08:59)
[2017-08-22] MEDS ORDERED: PROVENTIL 2.5 MG/3 ML NEB IH SCH (08:59)
[2017-08-22] MEDS ORDERED: solu-MEDROL 125 MG ONE (09:00)
[2017-08-22] MEDS ORDERED: ROCEPHIN 1 Gm-D5w 50 ml Bag** 1 G/50 ML IVPB IV ONE ×2 (09:00→09:13)
[2017-08-22 09:02] LABS: INR 1.1 (0.8-3.0); PROTIME 12.2 SECONDS (9.95-12.35)
[2017-08-22 09:05] LABS: PTT 63.6 SECONDS (25.3-37.0)
[2017-08-22] MEDS ORDERED: solu-MEDROL 125 MG IV ONE (09:05)
[2017-08-22 09:11] LABS: ALBUMIN 2.8 g/dL (3.4-5.0); ANION GAP 27.1 MEQ/L (5-15); BILIRUBIN,TOTAL 0.1 mg/dL (0.2-1.0); Total Protein 5.3 gm/dL (6.4-8.2)
[2017-08-22 09:18] LABS: Carbon Dioxide 15.7 mEq/L (21-32)
[2017-08-22 10:03] LABS: Lactic Acid 12.9 (0.4-2.0)
[2017-08-22 10:46] VITALS: BP 97/60; PULSE 127
[2017-08-22 11:14] VITALS: O2SAT 99
[2017-08-22 11:25] LABS: Bilirubin NEGATIVE (NEGATIVE); Blood 250 Ery/ul (0-5); COMPLETE URINE MICROSCOPIC? YES; Collection Type VOID; Glucose 1000 mg/dL (NEGATIVE); Leukocyte Esterase NEGATIVE (NEGATIVE)
[2017-08-22 11:34] LABS: Epithelial Cells MODERATE /HPF (FEW)
[2017-08-22 11:40] LABS: Bacteria MODERATE /HPF (NEGATIVE)
== END 2017-08-22 09:42 | disposition short-term general hospital (02) ==
LOC: ED 08:31
DX: J45.51 Severe persistent asthma with (acute) exacerbation (principal); R09.2 Respiratory arrest; I46.9 Cardiac arrest, cause unspecified
CPT/HCPCS: 31500; 36000; 36415; 36600; 51702; 71010; 80053; 80307; 81000; 82375; 82803; 82947; 82962; 83605; 84703; 85027; 85379; 85610; 85730; 87040; 93005; 93041; 94002; 94640; 94760; 94770; 94799; 96360; 96361; 96365; 96366; 96367; 96368; 96374; 96375; 99291; J0696; J1265; J2310; J2930; A9270-GY